=== PATIENT | female | born 1985 | race Caucasian/White ===

== ENCOUNTER → 2020-01-18 12:45 | Outpatient (BNVA) | payer MEDICAID, SELFPAY | PROVIDERS: Family Provider Family Medicine; PCP Family Medicine; Visit Provider Obstetrics & Gynecology | DX: O09.32 Supervision of pregnancy with insufficient antenatal care, second trimester (principal); Z3A.24 24 weeks gestation of pregnancy; E03.9 Hypothyroidism, unspecified; E78.2 Mixed hyperlipidemia; I10 Essential (primary) hypertension | CPT/HCPCS: 80053; 80307; 81000; 85027; 86592; 86762; 86803; 86850; 86900; 87077; 87086; 87186; 87340; 87491; 87591; 87806 ==

== ENCOUNTER 2020-01-30 11:53 | Emergency (ER) | payer MEDICAID, SELFPAY ==
[2020-01-30 12:10] VITALS: BMI 24.7
[2020-01-30 12:13] VITALS: BP 107/71; PULSE 91; RESP 20; TEMP 36.8; O2SAT 98
--- NOTE | 2020-01-30 12:42 | W.ED.EAR ---
HPI - Ear Problem General: Chief complaint: Ear Stated complaint: EAR CONGESTION Time Seen by Provider: 01/30/20 12:19 Source: patient Mode of arrival: ambulatory Limitations: no limitations History of Present Illness: HPI Narrative: Bekah is a nice 34-year-old female who comes in complaining of bilateral ear pain and drainage from her left ear. There is no reported dizziness, lightheadedness or fever. The patient states that she has been swimming this summer and feels as though she has pain sometimes in her outer ear. She denies any visual problems, vomiting, room spinning dizziness or headache. She states her ear pain though is severe at times and worse when she manipulates the outer part of her ear. She is admitted to similar symptoms in the past although she does not rub or how long ago. Associated symptoms: Denies fever(s), headache(s) or neck pain Review of Systems Const: Denies: fever(s) Eyes: Denies: change in vision ENMT: Denies: throat pain Card: Denies: chest pain, palpitations, syncope, pre-syncope or dyspnea on exertion Resp: Denies: dyspnea, productive cough or non-productive cough GI: Denies: abdominal pain, nausea, vomiting or diarrhea : Denies: flank pain, dysuria, urinary frequency or urinary urgency Musc: Denies: neck pain, back pain or extremity pain Skin/Breast: Denies: rash or pruritus Neuro: Denies: headache(s), numbness in extremities, weakness in extremities or dizziness Elijah/Lymph: Denies: easy bruising or easy bleeding All/Imm: Denies: urticaria PFSH ED PFSH: Medical History No pertinent past medical history Denies: Hypertension, hypercholesterolemia, diabetes, thyroid, heart, lung, liver, kidney problems, DVT/PE, genital herpes. Primary care provider: None Surgical History No history of previous surgery Family History Father Diabetes Hypertension Stroke Mother Stroke Breast cancer diagnosed at age 35 Sister Stroke Autism twin Denies family history of Colon cancer Heart disease Hyperlipidemia Thyroid condition Social History Smoking and tobacco status: former smoker Alcohol intake: unknown Additional social history: - Tobacco Use: Started smoking at age 23 and smoked 1/2 pack per day until 2016 when she stopped smoking. Denies tobacco use since then. Drug Use: Denies Alcohol Use: Drank socially as a teenager, denies use since then. 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 [employer] Female Reproductive History: Date of last menstrual period: 08/05/19 Physical Exam Const: COMMON NORMALS: no acute distress, patient oriented x3, no limitations, healthy appearing and well nourished GENERAL APPEARANCE: cooperative, well kempt and well developed HENMT: COMMON NORMALS: normocephalic, atraumatic, EAC's normal and Normal external nose present HEAD & SCALP: normal to inspection, normocephalic and atraumatic FACE & SINUS: normal facial exam and face symmetric NOSE: Normal external nose present and Normal nares present EXTERNAL EAR: Yes other (Bilateral ears with pain with traction on the pinna and pain with palpation of the tragus. Bilateral ear canals swollen but no obvious drainage. Mastoids were not tender to palpation. No boggy or soft end feel to the mastoid areas.) EXTERNAL AUDITORY CANAL: EAC's normal MOUTH: Normal oral and palatal mucosa present, lip normal and tongue normal Eye: COMMON NORMALS: Equal, round and reactive pupils present and conjunctivae normal GENERAL EYE: appearance normal, both eyes and all related structures ALIGNMENT: Yes alignment normal PERIORBITAL: periorbital findings normal EYELID: eyelids normal CONJUNCTIVA: Yes conjunctivae normal SCLERA: sclerae normal PUPIL: Yes Equal, round and reactive pupils present Neck/C-Spine: COMMON NORMALS: full ROM, no lymphadenopathy, supple, no meningeal signs and no JVD GENERAL: Yes normal visual inspection and Yes trachea midline Chest: COMMONS NORMALS: normal inspection of the chest and normal palpation of entire chest wall Resp: COMMON NORMALS: normal respiratory effort, No retractions and No use of accessory muscles EFFORT & INSPECTION: Yes able to speak in complete sentences and Yes symmetric chest movement AUSCULTATION: no crackles, no rales, no rhonchi and no wheezes Cardio: COMMON NORMALS: no JVD, regular rate, regular rhythm, S1 normal heart sound present and S2 normal heart sound present RATE: regular rate RHYTHM: regular rhythm HEART SOUNDS: S1 normal heart sound present, S2 normal heart sound present, no click, no gallops, no murmurs, no rubs and abnormal split S2 GI: COMMON NORMALS: Soft to palpation and No hepatosplenomegaly present PALPATION: Yes Soft to palpation, No Tenderness to palpation present (GI), No Guarding due to palpation present (GI), No Rigid due to palpation, Yes No hepatosplenomegaly present, No Hernia present, No Palpable mass present and No Pulsatile mass present : COMMON NORMALS: Yes no CVA tenderness BLADDER/KIDNEY EXAM: Yes no CVA tenderness EXTERNAL FEMALE EXAM: No Hernia present Back/Pelvis: COMMON NORMALS: no CVA tenderness, thoracic and lumbar spine normal to inspection, no thoracic nor lumbar tenderness and thoraco-lumbar ROM normal Extremity: COMMON NORMALS: normal to inspection, full ROM, capillary refill normal, no joint enlargement, no clubbing, cyanosis or edema and no calf tenderness Neuro: COMMON NORMALS: patient oriented x3, CN's II-XII intact bilaterally, moves all extremities, no focal motor deficits and no sensory deficits noted MENINGEAL SIGNS: Yes no meningeal signs SPEECH: speech normal Psych: COMMON NORMALS: mental status grossly normal, Normal thought process present, cooperative, normal affect, speech normal and activity/motor behavior normal APPEARANCE: Yes well kempt SPEECH: Yes normal speech THOUGHT PROCESS: Normal thought process present Skin: COMMON NORMALS: no rashes or lesions noted, turgor normal, no jaundice, no petechiae and no mottling GENERAL SKIN EXAM: no rashes or lesions noted and turgor normal Course Vital Signs: Vital signs: Vital Signs Temperature 98.2 F 01/30/20 12:13 Pulse Rate 91 01/30/20 12:13 Respiratory Rate 18 01/30/20 13:11 Blood Pressure 107/71 01/30/20 12:13 Pulse Oximetry 98 01/30/20 12:13 MDM - Ear MDM Narrative: Medical decision making narrative: Patient clinically has otitis externa. I will place her on Cortisporin otic eardrops. I have reviewed with the pharmacist as well as Dr. Rosenbaum who states this would be the preferred medication while she is . Patient's heart tones are normal. I will start her on a Z-Raymundo as I cannot see the eardrums and she will need her tympanic membranes covered for any type of otitis media. I see no sign of mastoiditis or deeper infection clinically and based upon exam. Discharge Plan Discharge Patient Disposition: Home Clinical Impression: Otitis externa Qualifiers: Otitis externa type: unspecified type Chronicity: acute Laterality: bilateral Qualified Code(s): H60.503 - Unspecified acute noninfective otitis externa, bilateral Condition: Stable Prescriptions: New Zithromax Z-Raymundo 250 mg tablet See Rx Instructions .ROUTE .COMPLEX Qty: 6 RF: 0 No Action prenat.vits,adrián,gww-[id number] Tablet 1 tab PO DAILY RF: 0 cephalexin 500 mg capsule 500 mg PO BID Qty: 14 RF: 0 azithromycin 500 mg tablet 1,000 mg PO DAILY Qty: 2 RF: 0 Referrals: Tressa Solares MD [Hospitalist] - Robi-Xin Payton MD [Physician] - 1-3 days Discharge Diet: Advance as tolerated Discharge Activity: Limit activity as instructed Patient Instructions: Otitis Externa - Adult, Otitis Externa (ED) Activity Restrictions/Additional Instructions: Please return to the ER immediately for any of the signs or symptoms listed on your discharge instruction sheets, worsening/changing of your symptoms, you are not getting better as quickly as expected, or for ANY other cause or concerns. Keep your ears clean and dry and use the drops as I have instructed. Be certain to call Dr. Rosenbaum's office as soon as possible for a follow-up appointment for your related issues and she can also recheck the progression of your healing from your ear infections. Discharge Date/Time: 01/30/20 13:09 Coding Level of Care Code ED Yarn Worker for Avinash Fwd Exam Comprehensive
[2020-01-30] MEDS: HYDROcodone-acetaminophen 5-325 mg Tablet 1 TAB PO (12:55)
[2020-01-30 13:11] VITALS: RESP 18
== END 2020-01-30 13:09 | disposition home or self-care (01) ==
PROVIDERS: Emergency Provider Emergency Medicine
DX: H60.503 Unspecified acute noninfective otitis externa, bilateral (principal); Z87.891 Personal history of nicotine dependence
CPT/HCPCS: 12345; 99281; 99283

== ENCOUNTER → 2020-02-02 09:35 | Outpatient (BNVA) | payer MEDICAID, SELFPAY | PROVIDERS: Visit Provider Obstetrics & Gynecology | DX: Z34.90 Encounter for supervision of normal pregnancy, unspecified, unspecified trimester (principal) | CPT/HCPCS: 81000 ==

== ENCOUNTER → 2020-02-14 10:46 | Outpatient (BNVA) | payer MEDICAID, SELFPAY | PROVIDERS: Visit Provider Obstetrics & Gynecology | DX: O40.9XX0 Polyhydramnios, unspecified trimester, not applicable or unspecified (principal); O99.89 Other specified diseases and conditions complicating pregnancy, childbirth and the puerperium; R82.71 Bacteriuria; O98.819 Other maternal infectious and parasitic diseases complicating pregnancy, unspecified trimester; A74.9 Chlamydial infection, unspecified | CPT/HCPCS: 81000; 82950; 85027 ==

== ENCOUNTER → 2020-02-28 13:28 | Outpatient (BNVA) | payer MEDICAID, SELFPAY | PROVIDERS: Visit Provider Obstetrics & Gynecology | DX: O40.9XX0 Polyhydramnios, unspecified trimester, not applicable or unspecified (principal); R82.71 Bacteriuria; O98.819 Other maternal infectious and parasitic diseases complicating pregnancy, unspecified trimester; A74.9 Chlamydial infection, unspecified; O36.5990 Maternal care for other known or suspected poor fetal growth, unspecified trimester, not applicable or unspecified | CPT/HCPCS: 81000 ==

== ENCOUNTER → 2020-03-16 10:39 | Outpatient (BNVA) | payer MEDICAID, SELFPAY | PROVIDERS: Visit Provider Obstetrics & Gynecology | DX: O99.89 Other specified diseases and conditions complicating pregnancy, childbirth and the puerperium (principal); R82.71 Bacteriuria; O98.819 Other maternal infectious and parasitic diseases complicating pregnancy, unspecified trimester; A74.9 Chlamydial infection, unspecified; Z3A.00 Weeks of gestation of pregnancy not specified | CPT/HCPCS: 80053; 81000; 87491 ==

== ENCOUNTER → 2020-03-27 09:33 | Outpatient (BNVA) | payer MEDICAID, SELFPAY | PROVIDERS: Visit Provider Obstetrics & Gynecology | DX: Z34.90 Encounter for supervision of normal pregnancy, unspecified, unspecified trimester (principal) | CPT/HCPCS: 81000 ==

== ENCOUNTER 2020-04-07 13:20 | Outpatient (CLI) | payer MEDICAID, SELFPAY ==
[2020-04-07] VITALS (34 sets, daily range): BP systolic 0–124; BP diastolic 0–88; PULSE 68–100; RESP 18; TEMP 36.8–37.1; O2SAT 88–100
[2020-04-07] MEDS: lactated ringers 1,000 ML 999 ML IV (14:05)
--- NOTE | 2020-04-07 15:37 | P.PCN_ITS ---
Procedure/Consent Procedure Narrative: NONSTRESS TEST: Place of test: [facility] [place]L&D Indication: 34-year-old 4 para 3-0-0-3 at 35 weeks and 6 days, abdominal pain and contractions Date and time of test: 04/07/2020, 1:50 PM Baseline: 120 Variability: Moderate Accelerations: Present Decelerations: None Tocometry: Every 6 to 8 minutes contractions INTERPRETATION: NST reactive, continue kick counts
--- NOTE | 2020-04-07 15:55 | PC.NURSE ---
Entered pt room at this time to update pt on new orders. Told pt that Dr. Rosenbaum ordered Terbutaline which is a medication commonly used to stop contractions. Told pt is was a shot that goes under the skin and that a common side effect is that it may make her heart rate a little faster than what it is now. Pt became very upset and reached for her phone and said, I need to to talk to my about this . This nurse agreed to allow pt to discuss with her however pt phone was . This nurse offered the room phone to the pt and dialed the number multiple times, each time getting a busy tone. Pt became more and more upset and started crying and avoiding eye contact with this nurse. This nurse asked the pt what her questions and concerns were about the medication. Pt stated, I just don't feel I should be taking medication that could make my heart rate rise. This nurse reported that her heart rate is currently in normal limits and that it could rise 10-20 beats and still be considered within normal limits. This nurse discussed that it is safe to give and that we would not give her anything that would intentionally harm her or her baby. Pt reported back. You guys are medical doctors, not God. You don't know what this medicine could do to me or my baby. This nurse told pt she had the right to refuse the medication if she would like and that she could talk to the about it if she would like. This nurse told pt she only reported the side effect of a rise in heart rate to educate the pt and that it wasn't intended to scare her. Pt reported I'm not stupid, I know what a side effect is. I really just need to talk to my about this. This nurse offered to call pt from the nurses station and pt gave consent to do so. This nurse called the number provided and pt father in law answered. This nurse asked to speak to pt and father in law reported that he was not there that he was on his way to the hospital. Father in law asked if pt was ok, this nurse reported that she did not have pt consent to give any information over the phone. Pt arrived shortly after. This nurse gave pt and her time to talk and answered all their questions about the medications and the plan of care. This nurse offered again to have physician talk to them as well, they denied and gave consent to continue with plan of care to give terbutaline. Medication was administered and this nurse stayed at bedside for around 20 minutes after administration. Pt heart rate robert by 10-15 beats, however, pt denied being able to feel a difference and reported she felt fine .
[2020-04-07] MEDS: terbutaline 1 mg/mL INJ 0.25 MG SUBCUT (16:48)
== END 2020-04-07 17:20 | disposition home or self-care (01) ==
LOC: OPOB 13:23 → OBGYN 17:18
PROVIDERS: Visit Provider Obstetrics & Gynecology
DX: O26.899 Other specified pregnancy related conditions, unspecified trimester (principal); Z3A.00 Weeks of gestation of pregnancy not specified; R10.9 Unspecified abdominal pain
CPT/HCPCS: 59025; 96372; 99211; J3105

== ENCOUNTER 2020-04-10 10:40 | Outpatient (CLI) | payer MEDICAID, SELFPAY ==
[2020-04-10 10:54] VITALS: BP 106/64; PULSE 80
[2020-04-10 10:58] VITALS: RESP 16; TEMP 36.7
[2020-04-10 10:59] VITALS: BMI 26.9
[2020-04-10 11:14] VITALS: BP 114/65; PULSE 83
--- NOTE | 2020-04-10 15:00 | PM.ACPR ---
Procedure/Consent Procedure Narrative: NONSTRESS TEST: Place of test: [facility] [place] Indication: 36 weeks and 2 days, SGA versus IUGR Date and time of test: 04/10/2020, 11 AM Baseline: 125 Variability: Moderate variability Accelerations: Accelerations present Decelerations: No decelerations Tocometry: No contractions INTERPRETATION: NST reactive, continue kick counts
== END 2020-04-10 11:25 | disposition home or self-care (01) ==
LOC: OPOB 10:49 → OBGYN 10:50
PROVIDERS: Visit Provider Obstetrics & Gynecology
DX: O36.5990 Maternal care for other known or suspected poor fetal growth, unspecified trimester, not applicable or unspecified (principal); Z3A.00 Weeks of gestation of pregnancy not specified
CPT/HCPCS: 12345; 59025; 81000; 87081; 87491; 99211

== ENCOUNTER 2020-04-14 01:03 | Outpatient (CLI) | payer MEDICAID, SELFPAY ==
[2020-04-14] VITALS (19 sets, daily range): BP systolic 0–121; BP diastolic 0–74; PULSE 72–92; RESP 16; TEMP 36.5–36.7; BMI 27.4
== END 2020-04-14 04:00 | disposition home or self-care (01) ==
LOC: OPOB 01:04 → OBGYN 03:54
PROVIDERS: Visit Provider Obstetrics & Gynecology
DX: O26.899 Other specified pregnancy related conditions, unspecified trimester (principal); Z3A.00 Weeks of gestation of pregnancy not specified; R10.9 Unspecified abdominal pain
CPT/HCPCS: 59025; 99211

== ENCOUNTER 2020-04-17 14:09 | Outpatient (CLI) | payer MEDICAID, SELFPAY ==
[2020-04-17 14:17] VITALS: RESP 16; TEMP 36.8; BMI 27.3
[2020-04-17 14:19] VITALS: BP 110/69; PULSE 102
--- NOTE | 2020-04-17 14:33 | P.PCN_ITS ---
Procedure/Consent Procedure Narrative: NONSTRESS TEST: [place] [facility] [place] Indication: 34-year-old at 37 weeks and 2 days, IUGR Date and time of test: 04/17/2020, 3 PM Baseline: 125 Variability: Moderate variability Accelerations: Present Decelerations: No decelerations Tocometry: Irritability, no contractions INTERPRETATION: NST reactive, continue kick counts
[2020-04-17 14:48] VITALS: BP 120/65; PULSE 91
[2020-04-17 14:58] VITALS: BP 97/48; PULSE 93
== END 2020-04-17 15:10 | disposition home or self-care (01) ==
LOC: OPOB 14:13 → OBGYN 14:14
PROVIDERS: Visit Provider Obstetrics & Gynecology
DX: O36.5990 Maternal care for other known or suspected poor fetal growth, unspecified trimester, not applicable or unspecified (principal); Z3A.00 Weeks of gestation of pregnancy not specified
CPT/HCPCS: 12345; 59025; 81000; 99211

== ENCOUNTER 2020-04-24 14:10 | Outpatient (CLI) | payer MEDICAID, SELFPAY ==
[2020-04-24 14:26] VITALS: BMI 27.4
[2020-04-24 14:41] VITALS: BP 109/67; PULSE 86
--- NOTE | 2020-04-24 16:00 | PM.ACPR ---
Procedure/Consent Procedure Narrative: NONSTRESS TEST: Place of test: [facility] [place] Indication: IUGR versus SGA- monitoring Date and time of test: 04/24/2020 Baseline: 120 Variability: Moderate variability Accelerations: Accelerations present Decelerations: No decelerations Tocometry: Occasional contractions INTERPRETATION: NST reactive, continue kick counts
--- NOTE | 2020-04-24 16:00 | P.PCN_ITS ---
Procedure/Consent Procedure Narrative: NONSTRESS TEST: Place of test: [facility] [place] Indication: IUGR versus SGA- monitoring Date and time of test: 04/24/2020 Baseline: 120 Variability: Moderate variability Accelerations: Accelerations present Decelerations: No decelerations Tocometry: Occasional contractions INTERPRETATION: NST reactive, continue kick counts
== END 2020-04-24 14:55 | disposition home or self-care (01) ==
LOC: OPOB 14:21 → OBGYN 14:22
PROVIDERS: Visit Provider Obstetrics & Gynecology
DX: O36.5990 Maternal care for other known or suspected poor fetal growth, unspecified trimester, not applicable or unspecified (principal); Z3A.00 Weeks of gestation of pregnancy not specified
CPT/HCPCS: 12345; 59025; 87635

== ENCOUNTER → 2020-04-26 12:59 | Outpatient (BNVA) | payer MEDICAID, SELFPAY | PROVIDERS: Visit Provider Obstetrics & Gynecology | DX: Z34.90 Encounter for supervision of normal pregnancy, unspecified, unspecified trimester (principal) | CPT/HCPCS: 81000 ==

== ENCOUNTER 2020-04-29 07:10 | Inpatient (IN) | payer MEDICAID, SELFPAY ==
[2020-04-29] VITALS (61 sets, daily range): BP systolic 0–141; BP diastolic 0–79; PULSE 63–85; RESP 14–18; TEMP 36.4–36.6; O2SAT 98–99; BMI 27.3
[2020-04-29] MEDS: oxytocin 30 UNIT/500 ML BAG IV (08:15)
[2020-04-29] MEDS: dextrose 5%-lactated ringers 1,000 ML 125 ML IV (08:19)
[2020-04-29 08:44] LABS: Basophils % 0.5 %; Eosinophils # 0.1 10^3/uL (0.0-0.8); Eosinophils % 1.3 %; Hematocrit 34.9 % (37.0-47.0); Hemoglobin 11.6 g/dL (11.5-15.3); Lymphocytes # 1.5 10^3/uL (0.8-4.8); Lymphocytes % 17.9 %; Mean Corpuscular HGB Conc 33.2 g/dL (30.0-36.0); Mean Corpuscular Hemoglobin 33.8 pg (28.0-34.0); Mean Corpuscular Volume 101.7 fL (81-99); Mean Platelet Volume 11.1 fL (7.4-10.4); Monocytes # 0.6 10^3/uL (0.2-0.9); Monocytes % 7.1 %; Neutrophils # 6.26 10^3/uL (1.8-7.7); Neutrophils % 72.7 %; Nucleated Red Blood Cells % 0 %; Platelet Count 180 10^3/cmm (130-400); Red Blood Count 3.43 10^6/uL (4.1-5.3); Red Cell Distribution Width 12.7 % (12.1-15.1); White Blood Count 8.6 10^3/uL (4.0-10.0)
--- NOTE | 2020-04-29 12:34 | PC.NURSE ---
This nurse asked pt if she had custody of her two older children. Pt hesitated to answer and stated, They do not live with me. This nurse told pt that she read a note from a previous hospital stay that stated that she did not have custody of her two boys and that they live with her mother in [place]. This nurse asked pt if that was correct. Pt became tearful and stated, My mother took them from me. She called [employer] on me and said I was unfit. She then stole all of my IDs and made it where I wasn't able to get a job or help. I moved down here to start over. I am saving up money to hire a bell hole digger and get my boys back. This nurse asked pt if [employer] was ever notified when her last two babies were born. Pt stated, Yes, they come and inspect my house and make sure everything is safe. This nurse reported that because the pt does not have custody of her two boys that this nurse is mandated to call [employer]. Pt verbalized understanding and stated, I know, I know, I've been through this before, you're just doing your job.
--- NOTE | 2020-04-29 13:16 | PM.PN ---
Vitals/I&O/Wt Last Vital Signs Temp 97.9 F 04/29/20 07:40 Pulse 66 04/29/20 13:11 Resp 18 04/29/20 07:40 BP 107/68 04/29/20 13:11 04/28/20 04/29/20 04/29/20 22:59 06:59 14:59 Intake Total 7.95 / 7.95 Balance 7.95 / 7.95 Weight last 48 hrs Weight 69.853 kg Physical Exam Narrative: EXAM NARRATIVE: GA: Alert and oriented ?3. Lungs: Clear to auscultation bilaterally. Heart: [Regular] rhythm and rate. Abdomen: Gravid, fundal height less than dates, nontender. CATALYTIC CASE OPERATOR: SVE; dilation: 5 cm, effacement: 80 %, station: -4, presentation: Cephalic, membranes: Intact. Extremities: no edema, no cyanosis, no calves pain. heart tracing: Basal rate: 140s bpm, Variability: Moderate, Accelerations: Present, Decelerations: Absent, Contractions: Every 3 minutes. Data : 04/30/20 04:05 A&P Assessment and plan (1) IUGR (intrauterine growth restriction) affecting care of mother: Patient started with oxytocin induction. Progressing adequately. heart tracing category 1. Anticipate vaginal delivery. Status: Acute Attestations Medical Necessity Statement*: in my professional opinion per admitting diagnosis Coding Level of Care Code Acute Regional Director Of Admissions for [facility] Fwd Diagnoses IUGR (intrauterine growth restriction) affecting care of mother O36.5990
--- NOTE | 2020-04-29 16:18 | PM.DELIVERY ---
Delivery Note: Date of delivery: April 29, 2020 Pre-delivery diagnoses: term at 39 weeks. intrauterine growth restriction Post-delivery diagnoses: same Procedure: spontaneous vaginal delivery Op report anesthesia: None Delivering Physician: Nathan Edgar M.D. Estimated blood loss (mL): 300 Findings: Male at 39 weeks, 's 8/9. bisrth weight 3170g. Pre-Delivery Course: The patient is a 34 year old, 5, Para 4-0-0-4, with an LMP of 07/31/2019 and an EDC of 05/06/2020 by dates which places her at 39 0/7 weeks gestation. who has been receiving care from [facility]. Admitted for induction due to IUGR CC: Induction. HPI: Received appropriate care. Daily vitamins since start of care. labs have all been normal, including negative for HIV. She had been diagnosed with intrauterine growth restriction. She was found to negative for Group B Strep from screening at 36 weeks. She has gained approximately 18 lbs throughout the . She denies a history of HTN during . Glucose tolerance screening for gestational diabetes was negative. Delivery: The patient was noted to be complete and pushing, so was placed in the dorsal lithotomy position, prepped and draped in the usual sterile fashion for a vaginal delivery. Pt. Noted to have epidural anesthesia. At 1607 the patient delivered a viable 39 weeks male infant weighing 3170 g with scores of 8 and 9 at one and five minutes, respectively. The vertex was delivered spontaneously over intact perineum. The patient was asked to push and the head delivered spontaneously in the LEANDRO position, over an intact perineum. Neck checked for a nuchal cord was and none noted. The anterior shoulder delivered easily and the posterior shoulder followed. The remainder of the infant was easily delivered and the oropharynx and nasopharynx was bulb suctioned. The was noted to have spontaneous cry and spontaneous movement of all four extremities. The cord was clamped x 2 and cut and noted to have 2 arteries and one vein. The infant was passed to the mother's abdomen where nursing personnel were in attendance. Cord blood was then obtained. The placenta delivered intact spontaneously and the uterus was explored. 20 units of Pitocin was placed in the IV bag to firm the uterus. Examination of the cervix and vaginal vault did not reveal any lacerations. A vaginal pack was then placed. Examination of the perineum showed no lacerations. The vaginal pack was then removed. The patient tolerated this procedure well, and recovered in L&D with her to the OB barreto. All sponge and needle counts were correct. Post-Delivery Status: good and stable A&P Assessment and plan (1) Term delivered: Status: Acute Coding Level of Care Code Acute Crystal Lapper for [facility] Fwd Diagnoses Term delivered O80
[2020-04-29] MEDS: docusate sodium 100 mg Capsule PO ×2 (17:32→20:49)
[2020-04-29] MEDS: lanolin oint 7 gm 1 APPLIC TOPICAL (17:32)
[2020-04-29] MEDS: benzocaine-menthol 78 gm Canister 1 SPRAY TOPICAL (17:32)
[2020-04-29] MEDS: ibuprofen 800 mg tablet PO (20:49)
[2020-04-29] MEDS: HYDROcodone-acetaminophen 5-325 mg Tablet PO (23:00)
[2020-04-30 00:09] VITALS: BP 104/65; PULSE 77; RESP 16; TEMP 36.6; O2SAT 98
[2020-04-30 02:19] VITALS: BP 106/67; PULSE 82; RESP 14; O2SAT 100
[2020-04-30 04:21] LABS: Positive C 1
[2020-04-30 04:23] LABS: Hematocrit 30.3 % (37.0-47.0); Hemoglobin 10.3 g/dL (11.5-15.3); Mean Corpuscular Hemoglobin 33.9 pg (28.0-34.0); Mean Corpuscular Volume 99.7 fL (81-99); Mean Platelet Volume 11.1 fL (7.4-10.4); Platelet Count 131 10^3/cmm (130-400); Red Blood Count 3.04 10^6/uL (4.1-5.3); Red Cell Distribution Width 12.5 % (12.1-15.1)
[2020-04-30 06:20] VITALS: BP 115/74; PULSE 68; RESP 16; TEMP 36.8; O2SAT 98
[2020-04-30] MEDS: prenatal vitamin Capsule 1 CAP PO (08:09)
[2020-04-30] MEDS: ibuprofen 800 mg tablet PO ×2 (08:09→17:17)
[2020-04-30] MEDS: HYDROcodone-acetaminophen 5-325 mg Tablet PO ×2 (08:54→17:18)
[2020-04-30 10:13] VITALS: BP 114/68; PULSE 78; RESP 16; TEMP 36.6; O2SAT 98
--- NOTE | 2020-04-30 10:34 | P.DS_ITS ---
Discharge Providers RESEARCH PROGRAM MANAGER Date of Admission: 04/29/20 07:10 Date of Discharge: 04/30/20 Attending Provider at Admission: Nathan Edgar MD Attending Provider at Discharge: Nathan Edgar MD Diagnoses at Discharge Discharge Diagnosis (1) IUGR (intrauterine growth restriction) affecting care of mother: Status: Acute Problem details: status post spontaneous vaginal delivery day 1 Qualifiers: Fetus number: single or unspecified fetus Trimester: third trimester Qualified Code(s): O36.5930 - Maternal care for other known or suspected poor growth, third trimester, not applicable or unspecified (2) Term delivered: Status: Acute Reason for Visit Reason for Visit: Induction Of Labor Hospital Course Hospital Course: The patient is a 34 year old, 5, Para 4-0-0-4, with an LMP of 07/31/2019 and an EDC of 05/06/2020 by dates which places her at 39 0/7 weeks gestation. who has been receiving care from [facility]. Admitted for induction due to IUGR CC: Induction. HPI: Received appropriate care. Daily vitamins since start of care. labs have all been normal, including negative for HIV. She had been diagnosed with intrauterine growth restriction. She was found to negative for Group B Strep from screening at 36 weeks. She has gained approximately 18 lbs throughout the . She denies a history of HTN during . Glucose tolerance screening for gestational diabetes was negative. She progressed to have a spontaneous vaginal delivery without complications. She delivered a viable 39 weeks male infant weighing 3170 g with scores of 8 and 9 at one and five minutes, respectively. laceration has been uneventful. esophago-afebrile hemodynamically stable. Tolerating diet well. Ambulating without difficulty. Information Peripartum Data: Delivery Method: Vaginal Physical Exam Narrative: EXAM NARRATIVE: GA; alert and oriented x 3 HEENT: normal Breasts: engorged Nipples - skin intact Lungs; clear to auscultation Heart: regular rhythm, no murmurs. Abd: Appropriately tender. BS+. Uterine fundus below umbilicus. No Fundal Tenderness. Perineum: normal lochia. Extremities: no edema, no cyanosis, no tenderness. Discharge Data Data Completed and Pending: Labs from last 24 hours 04/30/20 04:05 WBC 11.0 H RBC 3.04 L Hgb 10.3 L Hct 30.3 L MCV 99.7 H MCH 33.9 MCHC 34.0 RDW 12.5 Plt Count 131 MPV 11.1 H Vitals: Last Vital Signs Temp 97.9 F 04/30/20 10:13 Pulse 78 04/30/20 10:13 Resp 16 04/30/20 10:13 BP 114/68 04/30/20 10:13 Pulse Ox 98 04/30/20 10:13 Discharge Plan Discharge Patient Disposition: Home Condition: Stable Prescriptions: New ferrous sulfate 325 mg (65 mg iron) tablet 325 mg PO BID Qty: 60 RF: 0 ibuprofen 800 mg tablet 800 mg PO TID PRN (Reason: pain) Qty: 60 RF: 0 acetaminophen 325 mg capsule 325 mg PO Q4H PRN (Reason: fever or pain) Qty: 60 RF: 0 Continued prenat.vits,adrián,njh-bdzr-kywye Tablet 1 tab PO DAILY RF: 0 Discharge Orders: Discharge Order (Routine); Ordered 04/30/20 Ordered By: Nathan Edgar Referrals: Nathan Edgar MD [Physician] - 6 Weeks Discharge Diet: As Directed and Regular Discharge Activity: Increase activity as tolerated Patient Instructions: Vaginal Delivery (DC), Vaginal Delivery (GEN) Activity Restrictions/Additional Instructions: 1. Please call [facility] on next working day to make your post- appointment in 6 weeks. 2. Please stay home until you come back to the clinic on first post-operative check up. 3. Please follow instructions on your medications CAREFULLY. 4. If you have abdominal incision, do not cover it unless dressing is necessary because of drainage. OK to shower, but avoid bath. Leave steri-strips until they fall off. If they are still on one week after surgery, you may remove them. 5. If you had vaginal surgery/repairs, your doctor may instuct you to take SITZ bath. 6. Yellow, blood tinged odorous vaginal discharge is usually normal after hysterectomy or vaginal surgeries/sutures/repairs. 7. No sexual intercourse, tampons, or douches until you are completely released from the post-operative care. 8. Avoid constipation by eating right and maybe using some Metamucil or Milk of Magnesia. 9. All presciption refills are given during the working hours. Please do no wait till it runs out. Call the clinic at [phone] before your medication runs out. The clinic will get in touch with your doctor to prescribe medications if necessary. 10. Please remain within 40 mile radius from our hospital because emergencies do happen now and then during the post-operative period. 11. If you have stairs at home, take one step at a time slowly and minimize the number of trips. It helps to stay in one floor for the next few days. No lifting except what you can lift by one hand until you are released from the post-operative care. 12. Driving is discouraged until you are well healed. It may be 3-4 weeks before you feel strong enough to drive. You should be able to turn and look throught the rear window without pain and you should be able to push the brake pedal very hard without pain before you drive. No fast rules, but SAFETY should be your primary concern. DO NOT drive if you are on sedating medications such as narcotics. 13. Call the clinic (during working hours) to make urgent appointment or go to the Emergency room, if any of the following occurs: i. Vaginal bleeding becomes heavy, more than a period. ii. Incision becomes red and sore, or drains pus. iii. Your temperature is over 100.4 or you have chill. iv. IV site becomes red and swollen (a little ``knot?? is usually OK) v. Persistent nausea and vomiting vi. Persistent constipation or diarrhea vii. Rash or allergic reaction to medications. Discharge Attestations RESEARCH PROGRAM MANAGER Time Spent in Discharge Care*: greater than 30 min Specific Discharge Activities: Specific discharge activities: educating patient and educating and/or supporting family/caregiver Coding Level of Care Code Acute [employer] Agent for Chg Fwd Diagnoses IUGR (intrauterine growth restriction) affecting care of mother O36.5930 Fetus number: single or unspecified fetus Trimester: third trimester Term delivered O80
[2020-04-30 17:40] VITALS: BP 119/79; PULSE 79; RESP 16; TEMP 36.6; O2SAT 98
== END 2020-04-30 17:45 | disposition home or self-care (01) | DRG 807 ==
PROVIDERS: Admitting Provider Obstetrics & Gynecology; Visit Provider Obstetrics & Gynecology
DX: O36.5930 Maternal care for other known or suspected poor fetal growth, third trimester, not applicable or unspecified (principal); Z37.0 Single live birth; Z3A.39 39 weeks gestation of pregnancy
CPT/HCPCS: 12345; 36415; 59025; 59409; 85025; 85027; 90471; 90686; 99211

== ENCOUNTER → 2021-01-29 12:23 | Outpatient (BNVA) | payer OTHER, SELFPAY | PROVIDERS: PCP Family Medicine; Visit Provider Nurse Practitioner Family | DX: Z20.822 Contact with and (suspected) exposure to COVID-19 (principal) | CPT/HCPCS: 87635 ==

== ENCOUNTER 2021-05-02 07:50 | Emergency (ER) | payer BC, MEDICAID, SELFPAY ==
[2021-05-02 07:54] VITALS: BP 121/78; PULSE 89; RESP 18; TEMP 36.4; O2SAT 99; BMI 21.9
--- NOTE | 2021-05-02 08:08 | ED_ITS ---
HPI - Female Genitourinary General: Chief complaint: Urogenital-Female Stated complaint: L FLANK PAIN, H/A Time Seen by Provider: 05/02/21 07:52 History of Present Illness: HPI Narrative: Patient is a 35-year-old female comes to the ED with left flank pain. Symptoms started last night. She has pain in her left flank and lower back region that she rates it a 10 out of 10. She also endorses having some nausea but has not had any episodes of emesis. Denies having any pain like this in the past. No worsening or improving factors. She has not taken any [id number] pain meds before coming to the ED. Patient just started her menstrual period today. Denies any fever, chills, abdominal pain, emesis dysuria or hematuria. Associated symptoms: Reports nausea; Deny abdominal pain or headache(s) Date of Last Menstrual Period: 12/17/20 Review of Systems Const: Denies: fever(s), chills or fatigue Eyes: Denies: change in vision or eye discomfort ENMT: Denies: throat pain, odynophagia, nasal discharge or nasal congestion Card: Denies: chest pain, palpitations, edema, swelling of feet/ankles, dyspnea on exertion or orthopnea Resp: Denies: dyspnea, productive cough or non-productive cough GI: Reports: nausea; Denies: abdominal pain, vomiting, diarrhea, constipation or hematochezia : Reports: flank pain; Denies: dysuria or hematuria Musc: Denies: neck pain, back pain or extremity swelling Skin/Breast: Denies: rash or new lesions Neuro: Denies: headache(s), numbness in extremities or weakness in extremities PFSH ED PFSH: Medical History No pertinent past medical history Denies: Hypertension, hypercholesterolemia, diabetes, thyroid, heart, lung, liver, kidney problems, DVT/PE, genital herpes. Primary care provider: None Psychiatric care Surgical History No history of previous surgery Family History Father Diabetes Hypertension Stroke Mother Stroke Breast cancer diagnosed at age 35 Sister Stroke Autism twin Denies family history of Colon cancer Heart disease Hyperlipidemia Thyroid condition Social History Smoking and tobacco status: former smoker Quit status (tobacco): has quit using tobacco Year quit tobacco: Quit age 23. Former quit date comment: Most smoked 1/2 PPD. Alcohol intake: former Other details last alcohol use: Drinks socially as a teenager Female Reproductive History: Date of last menstrual period: 12/17/20 Physical Exam Const: COMMON NORMALS: no acute distress, patient oriented x3 and alert GENERAL APPEARANCE: cooperative and comfortable HENMT: COMMON NORMALS: normocephalic HEAD & SCALP: normocephalic MOUTH: Normal oral and palatal mucosa present THROAT: posterior oropharynx normal and uvula midline Eye: COMMON NORMALS: Equal, round and reactive pupils present PUPIL: Yes Equal, round and reactive pupils present Neck/C-Spine: COMMON NORMALS: supple GENERAL: Yes normal visual inspection Resp: COMMON NORMALS: normal respiratory effort, No retractions, No use of accessory muscles and clear to auscultation bilaterally AUSCULTATION: clear to auscultation bilaterally Cardio: COMMON NORMALS: regular rate, regular rhythm, S1 normal heart sound present, S2 normal heart sound present, No gallops present (Cardio), No clicks present (Cardio), No murmurs present (Cardio) and Peripheral pulses 2+ throughout RATE: regular rate RHYTHM: regular rhythm HEART SOUNDS: S1 normal heart sound present and S2 normal heart sound present PERIPHERAL PULSES: Peripheral pulses 2+ throughout GI: COMMON NORMALS: Normal to inspection, nondistended, normoactive bowel sounds present, Soft to palpation, non-tender and no masses PALPATION: Yes Soft to palpation : BLADDER/KIDNEY EXAM: Yes CVA tenderness on the left Back/Pelvis: GENERAL BACK: Yes CVA tenderness Extremity: COMMON NORMALS: normal to inspection Neuro: COMMON NORMALS: patient oriented x3 and moves all extremities SENSORIUM/ORIENTATION: Yes alert Skin: GENERAL SKIN EXAM: dry skin Course Vital Signs: Vital signs: Vital Signs Temperature 97.6 F 05/02/21 07:54 Pulse Rate 89 05/02/21 07:54 Respiratory Rate 18 05/02/21 07:54 Blood Pressure 121/78 05/02/21 07:54 Pulse Oximetry 99 05/02/21 07:54 MDM - Female MDM Narrative: Medical decision making narrative: Patient is a 35-year-old female comes to the ED with acute left flank pain. She also endorses having some nausea but denies any other symptoms. She has left CVA tenderness but the rest of exam is benign. Patient had no abdominal tenderness upon palpation. Labs show neutropenia, but the rest of the labs are unremarkable. Blood cultures pending. Patient is afebrile and the rest of vitals are stable. CT of abdomen pelvis showed no signs of appendicitis or obstructive kidney stones. Patient was diagnosed with left flank pain and neutropenia. She was given a dose of Cipro and clindamycin while here in the ED. Patient was also given IV fluids, nausea and pain meds while here in the ED. She was discharged home and told to follow-up with her PCP within 3 days to be reevaluated and to have her CBC lab rechecked. She was discharged home with a prescription for Cipro, clindamycin, Zofran and hydrocodone. Return to ED precautions given. Patient understood and agreed with plan. Lab Data: Attestation: I reviewed the patient's lab results. Labs: Lab Results 05/02/21 05/02/21 05/02/21 08:15 08:15 08:15 WBC 2.4 10^3/uL L 10^ 3/uL (4.0-10.0) RBC 4.76 10^6/uL 10^6 /uL (4.1-5.3) Hgb 15.1 g/dL g/dL (11.5-15.3) Hct 44.9 % % (37.0-47.0) MCV 94.3 fl fl (81-99) MCH 31.7 pg pg (28.0-34.0) MCHC 33.6 g/dL g/dL (30.0-36.0) RDW 12.5 % % (12.1-15.1) Plt Count 143 10^3/cmm 10^3 /cmm (130-400) MPV 11.3 fL H fL (7.4-10.4) Neut % (Auto) 35.5 % % Lymph % (Auto) 47.3 % % Wilkinson % (Auto) 16.0 % % Eos % (Auto) 0.8 % % Baso % (Auto) 0.4 % % Neut # (Auto) 0.84 10^3/uL L* 1 0^3/uL (1.8-7.7) Lymph # (Auto) 1.1 10^3/uL 10^3/ uL (0.8-4.8) Wilkinson # (Auto) 0.4 10^3/uL 10^3/ uL (0.2-0.9) Eos # (Auto) 0.0 10^3/uL 10^3/ uL (0.0-0.8) Baso # (Auto) 0.0 10^3/uL 10^3/ uL (0.0-0.1) Nucleated RBC % (a uto) 0 % % Nucleated RBCs # 0.0 /100WBC /100W BC Sodium 136 mmol/L mmol/L (136-145) Potassium 3.6 mmol/L mmol/L (3.5-5.1) Chloride 100 mmol/L mmol/L (98-107) Carbon Dioxide 25 mmol/L mmol/L (22-29) Anion Gap 14.6 (5-19) BUN 12 mg/dL mg/dL (6-20) Creatinine 0.7 mg/dL mg/dL (0.5-0.9) GFR Calculation 95.8 mL/min mL/mi n (90-130) Glucose 83 mg/dL mg/dL (65-115) Calculated Osmolal ity 281 mOsm/kg L mOs m/kg (285-295) Calcium 9.3 mg/dL mg/dL (8.5-10.5) Total Bilirubin 0.3 mg/dL mg/dL (0.15-1.2) AST 24 U/L U/L (0-32) ALT 17 U/L U/L (0-33) Alkaline Phosphata se 97 IU/L IU/L (35-105) Total Protein 7.9 g/dL g/dL (6.6-8.7) Albumin 4.7 g/dL g/dL (3.5-5.2) Globulin 3.2 g/dL g/dL (1.3-4.6) Lipase 26 U/L U/L (13-60) HCG, Qual Negative (Negative) Urine Color Urine Appearance Urine pH Ur Specific Gravit y Urine Protein Urine Glucose (UA) Urine Ketones Urine Blood Urine Nitrate Urine Bilirubin Urine Urobilinogen Ur Leukocyte Karo ase Urine RBC Urine WBC Ur Squamous Epith Cells Amorphous Sediment Urine Bacteria 10/27/21 08:38 WBC RBC Hgb Hct MCV MCH MCHC RDW Plt Count MPV Neut % (Auto) Lymph % (Auto) Wilkinson % (Auto) Eos % (Auto) Baso % (Auto) Neut # (Auto) Lymph # (Auto) Wilkinson # (Auto) Eos # (Auto) Baso # (Auto) Nucleated RBC % (a uto) Nucleated RBCs # Sodium Potassium Chloride Carbon Dioxide Anion Gap BUN Creatinine GFR Calculation Glucose Calculated Osmolal ity Calcium Total Bilirubin AST ALT Alkaline Phosphata se Total Protein Albumin Globulin Lipase HCG, Qual Urine Color Yellow (Yellow) Urine Appearance Clear (CLEAR) Urine pH 6.5 (5-7) Ur Specific Gravit y 1.010 (1.005-1.030) Urine Protein Neg (Negative) Urine Glucose (UA) Norm (Normal) Urine Ketones Negative (Negative) Urine Blood 2+ H (Negative) Urine Nitrate Negative (Negative) Urine Bilirubin Neg (Negative) Urine Urobilinogen Norm mg/dL mg/dL (Negative) Ur Leukocyte Karo ase Negative (Negative) Urine RBC None /hpf /hpf (0-2) Urine WBC 0-4 /hpf H /hpf (0-5) Ur Squamous Epith Cells 0-4 /hpf H /hpf (0-5) Amorphous Sediment Not Reportable Urine Bacteria Trace /hpf /hpf (NONE) Imaging Data: CT Abd/Pel: Attestation: I personally reviewed and interpreted this imaging study as follows: Radiologist's impression: [address] [address] [address] Scan Report Signed Patient: Bekah Villarreal Unit #: [id number] : 1985 Age/Sex: 35 / F ADM Date: 05/02/21 Loc: ER Room/Bed: Attending Dr: Ordering Provider/Ordering MD: Mckay Hodges Date of Service: 05/02/21 Procedure(s): CT kidney stone 30473 Accession Number(s): [id number] Report Number: [id number] WS: [id number] CT ABDOMEN AND PELVIS NONCONTRAST HISTORY: left flank pain and nausea TECHNIQUE: Imaging performed through the abdomen and pelvis. Coronal and sagittal reformats are submitted. All CT scans at [facility] use at least one of these dose optimization techniques: automated exposure control; mA and/or kV adjustment per patient size (includes targeted exams where dose is matched to clinical indication); or iterative reconstruction. DLP: 547.03 mGy.cm COMPARISON: None available. Lower thorax: Lung bases are clear. Visualized heart is normal. No hiatal hernia. Liver: Normal size liver with a few granulomata. No mass. Gallbladder: Normal gallbladder. Pancreas: Poorly visualized without IV contrast. Spleen: Normal. Adrenal glands: Normal. No mass. Right kidney: Normal size kidney with no mass or hydronephrosis. Left kidney: Normal size kidney with no mass or hydronephrosis. Aorta: Normal abdominal aorta, no aneurysm or atherosclerosis. No free fluid, intraperitoneal air or significant lymphadenopathy. GI tract: Diffuse constipation and fecal retention. The appendix is identified and not dilated and no additional inflammation. There are extensive calcifications throughout the appendix. Abdominal wall: Negative. No hernia. Pelvis: Normal anteverted uterus. Uterus is slightly positioned to the RIGHT of midline. Small follicle LEFT ovary. Osseous structures: Unremarkable. CT/CT kidney stone [id number] IMPRESSION: 1. No renal obstruction or calcifications identified. 2. No appendicitis. The appendix is identified and does contain extensive appendicoliths. 3. Diffuse constipation. Dictated By: Milagro Vargas DO Signed By: Milagro Vargas DO Signed Date/Time: 05/02/21915 DD/ 0 Discharge Plan Discharge Patient Disposition: Home Clinical Impression: Acute left flank pain Neutropenia Qualifiers: Neutropenia type: unspecified Qualified Code(s): D70.9 - Neutropenia, unspecified Condition: Stable Prescriptions: New ciprofloxacin HCl 500 mg tablet 500 mg PO BID 7 Days Qty: 14 RF: 0 clindamycin HCl 150 mg capsule 300 mg PO QID 7 Days Qty: 56 RF: 0 Zofran 4 mg tablet 4 mg PO Q8H PRN (Reason: nausea and vomiting) Qty: 20 RF: 0 No Action doxycycline hyclate 100 mg capsule 100 mg PO BID RF: 0 Discharge Orders: Discharge ED (Routine); Ordered 05/02/21 Ordered By: Mckay Hodges Referrals: Drerell Lechuga MD [Primary Care Provider] - Discharge Diet: Regular Discharge Activity: Increase activity as tolerated Patient Instructions: Neutropenia (ED), Flank Pain (ED), Opioid Safety Activity Restrictions/Additional Instructions: Follow-up with medical provider as directed within the next 3 days to be reevaluated. Have your PCP redraw CBC lab to check on white blood cell counts. Take medications as prescribed. Return to the ER or your medical provider if condition worsens. Please read and understand discharge instructions. Thank you for choosing [facility] for your healthcare needs today. Please realize this is an emergency room and that we are providing you with a medical screening exam and this may not be complete and all inclusive of all the testing and or work up that you may need to determine your ailment or severity of your illness. It is very important that you follow up as instructed or that you return to the Emergency Department should you have concerns or if your condition changes or worsens in any way. Stand Alone Forms: Work/School Release Coding Level of Care Code ED Care Program Resident for Avinash [employer] Exam Comprehensive
--- NOTE | 2021-05-02 08:13 | CT_ITS ---
WS: [id number] CT ABDOMEN AND PELVIS NONCONTRAST HISTORY: left flank pain and nausea TECHNIQUE: Imaging performed through the abdomen and pelvis. Coronal and sagittal reformats are submi tted. All CT scans at [facility] use at least one of these dose optimization techniques: auto mated exposure control; mA and/or kV adjustment per patient size (includes targeted exams where dose is matched to clinical indication); or iterative reconstruction. DLP: 547.03 mGy.cm COMPARISON: None available. Lower thorax: Lung bases are clear. Visualized heart is normal. No hiatal hernia. Liver: Normal size liver with a few granulomata. No mass. Gallbladder: Normal gallbladder. Pancreas: Poorly visualized without IV contrast. Spleen: Normal. Adrenal glands: Normal. No mass. Right kidney: Normal size kidney with no mass or hydronephrosis. Left kidney: Normal size kidney with no mass or hydronephrosis. Aorta: Normal abdominal aorta, no aneurysm or atherosclerosis. No free fluid, intraperitoneal air or significant lymphadenopathy. GI tract: Diffuse constipation and fecal retention. The appendix is identified and not dilated and no additional inflammation. There are extensive calcifications throughout the appendix. Abdominal wall: Negative. No hernia. Pelvis: Normal anteverted uterus. Uterus is slightly positioned to the RIGHT of midline. Small follic le LEFT ovary. Osseous structures: Unremarkable. CT/CT kidney stone [id number] IMPRESSION: 1. No renal obstruction or calcifications identified. 2. No appendicitis. The appendix is identified and does contain extensive appe ndicoliths. 3. Diffuse constipation.
[2021-05-02 08:21] LABS: Basophils % 0.4 %; Eosinophils % 0.8 %; Hematocrit 44.9 % (37.0-47.0); Hemoglobin 15.1 g/dL (11.5-15.3); Lymphocytes # 1.1 10^3/uL (0.8-4.8); Lymphocytes % 47.3 %; Mean Corpuscular HGB Conc 33.6 g/dL (30.0-36.0); Mean Corpuscular Hemoglobin 31.7 pg (28.0-34.0); Mean Corpuscular Volume 94.3 fl (81-99); Mean Platelet Volume 11.3 fL (7.4-10.4); Monocytes # 0.4 10^3/uL (0.2-0.9); Neutrophils % 35.5 %; Nucleated Red Blood Cells % 0 %; Platelet Count 143 10^3/cmm (130-400); Red Blood Count 4.76 10^6/uL (4.1-5.3); Red Cell Distribution Width 12.5 % (12.1-15.1); White Blood Count 2.4 10^3/uL (4.0-10.0)
[2021-05-02 08:39] LABS: Neutrophils # 0.84 10^3/uL (1.8-7.7)
[2021-05-02] MEDS: morphine 4 mg/mL SDV 1 mL IVP (08:42)
[2021-05-02] MEDS: ondansetron 2 mg/ML SDV 2 mL 4 MG IVP (08:42)
[2021-05-02] MEDS: sodium chloride 0.9% 1,000 ML 999 ML IV (08:43)
[2021-05-02 08:51] LABS: Alanine Aminotransferase 17 U/L (0-33); Albumin Level 4.7 g/dL (3.5-5.2); Alkaline Phosphatase 97 IU/L (35-105); Anion Gap 14.6 (5-19); Aspartate Amino Transferase 24 U/L (0-32); Blood Urea Nitrogen 12 mg/dL (6-20); Calcium 9.3 mg/dL (8.5-10.5); Carbon Dioxide 25 mmol/L (22-29); Chloride 100 mmol/L (98-107); Globulin 3.2 g/dL (1.3-4.6); Glomerular Filtration Rate 95.8 mL/min (90-130); Glucose 83 mg/dL (65-115); Lipase 26 U/L (13-60); Osmolality Calculated 281 mOsm/kg (285-295); Potassium 3.6 mmol/L (3.5-5.1); Sodium 136 mmol/L (136-145); Total Bilirubin 0.3 mg/dL (0.15-1.2); Total Protein 7.9 g/dL (6.6-8.7)
[2021-05-02 08:59] LABS: HCG, Serum Qual Negative (Negative)
[2021-05-02 09:56] LABS: Urine Appearance Clear (CLEAR); Urine Color Yellow (Yellow); pH Urine 6.5 (5-7)
[2021-05-02 09:57] LABS: Add Urine Microscopic? YES; Bilirubin Urine Neg (Negative); Blood Urine 2+ (Negative); Glucose Urine UA Norm (Normal); Ketones Urine Negative (Negative); Leukocyte Esterase Urine Negative (Negative); Nitrate Urine Negative (Negative); Protein Urine Neg (Negative); Urobilinogen Urine Norm (Negative)
[2021-05-02 10:05] LABS: Bacteria Urine TRACE /hpf; Squamous Epithelial Cell Urine 0-4 /hpf (0-5); WBC Urine 0-4 /hpf (0-5)
[2021-05-02] MEDS: ketorolac 30 mg/mL INJ IVP (10:10)
[2021-05-02] MEDS: ciprofloxacin 500 mg Tablet PO (10:34)
[2021-05-02] MEDS: clindamycin 150 mg Capsule 300 MG PO (10:34)
== END 2021-05-02 10:54 | disposition home or self-care (01) ==
PROVIDERS: Emergency Provider Physician Assistant; PCP Family Medicine
DX: D70.9 Neutropenia, unspecified (principal); R10.9 Unspecified abdominal pain; Z87.891 Personal history of nicotine dependence
CPT/HCPCS: 74176; 80053; 81001; 83690; 84703; 85025; 87040; 96361; 96374; 96375; 99283; J1885; J2270; J2405; J7030

== ENCOUNTER 2021-05-05 10:40 | Emergency (ER) | payer BC, MEDICAID, SELFPAY ==
[2021-05-05 10:55] VITALS: BP 105/74; PULSE 101; RESP 22; TEMP 36.8; O2SAT 97; BMI 21.9
--- NOTE | 2021-05-05 11:08 | CTR_ITS ---
PROCEDURE INFORMATION: Exam: CT Head Without Contrast Exam date and time: 05/05/2021 11:08 AM Age: 35 years old Clinical indication: Malaise or fatigue and weakness, extremity; Bilateral; Additional info: Numbness in face and arms bilaterally TECHNIQUE: Imaging protocol: Computed tomography of the head without contrast. Radiation optimization: All CT scans at this facility use at least one of these dose optimization techniques: automated exposure control; mA and/or kV adjustment per patient size (includes targeted exams where dose is matched to clinical indication); or iterative reconstruction. COMPARISON: No relevant prior studies available. RADIATION DOSE METRICS: Total DLP (mGy-cm): 675.74 FINDINGS: Brain: Normal. No hemorrhage. Unremarkable white matter. No mass effect. Cerebral ventricles: No ventriculomegaly. Paranasal sinuses: There is scattered mucosal thickening in the ethmoid maxillary and sphenoid sinuses. There is a small amount of fluid in the sphenoid sinus. Mastoid air cells: Visualized mastoid air cells are well aerated. Bones/joints: Unremarkable. No acute fracture. Soft tissues: Unremarkable. CT/CT head wo con* [id number] IMPRESSION: 1. No acute intracranial abnormality. 2. Paranasal sinusitis. Radiation Dose CTDIVOL = (mGy): DLP = 675.74 (mGy-cm)
--- NOTE | 2021-05-05 11:16 | ED_ITS ---
HPI - Back Pain/Injury General: Chief Complaint: Back Pain/Injury Stated Complaint: SPREADING NUMBNESS/LOW WBC Time Seen by Provider: 05/05/21 10:43 History of Present Illness: HPI Narrative: Patient is a 35-year-old female comes to the ED with bilateral arm numbness and left side facial numbness. Symptoms occurred approximately 1 hour ago. 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 She endorses some bilateral hand and arm pain as well. Denies any vision changes or any other neurological symptoms. She endorses having some left-sided back and flank pain that remains about the same as it did when she was seen here on May 02 for flank and back pain complaint. No worsening back or flank pain since May 02. Denies any fever, chills, chest pain, shortness of breath, abdominal pain, bladder or bowel symptoms. Patient has a follow-up appointment set up with her PCP on May 09. Associated symptoms: Deny abdominal pain, chills, dysuria, fatigue, fever(s), hematuria, nausea or vomiting Review of Systems Const: Denies: fever(s), chills or fatigue Eyes: Denies: change in vision or eye discomfort ENMT: Denies: throat pain, odynophagia, nasal discharge or nasal congestion Card: Denies: chest pain, palpitations, edema, swelling of feet/ankles, dyspnea on exertion or orthopnea Resp: Denies: dyspnea, productive cough or non-productive cough GI: Denies: abdominal pain, nausea, vomiting, diarrhea, constipation or hematochezia : Denies: flank pain, dysuria or hematuria Musc: Reports: back pain and extremity pain (bilateral hand and arm pain); Denies: neck pain or extremity swelling Skin/Breast: Denies: rash or new lesions Neuro: Reports: sensory changes (numbness left side of face, bilateral hands and arms); Denies: headache(s), numbness in extremities or weakness in extremities [facility] ED PFSH: Medical History No pertinent past medical history Denies: Hypertension, hypercholesterolemia, diabetes, thyroid, heart, lung, liver, kidney problems, DVT/PE, genital herpes. Primary care provider: None Psychiatric care Surgical History No history of previous surgery Family History Father Diabetes Hypertension Stroke Mother Stroke Breast cancer diagnosed at age 35 Sister Stroke Autism twin Denies family history of Colon cancer Heart disease Hyperlipidemia Thyroid condition Social History Smoking and tobacco status: former smoker Quit status (tobacco): has quit using tobacco Year quit tobacco: Quit age 23. Former quit date comment: Most smoked 1/2 PPD. Alcohol intake: former Other details last alcohol use: Drinks socially as a teenager Female Reproductive History: Date of last menstrual period: 05/05/21 Physical Exam Const: COMMON NORMALS: no acute distress, patient oriented x3, healthy appearing and alert GENERAL APPEARANCE: cooperative and comfortable HENMT: COMMON NORMALS: normocephalic HEAD & SCALP: normocephalic MOUTH: Normal oral and palatal mucosa present THROAT: posterior oropharynx normal and uvula midline Eye: COMMON NORMALS: Equal, round and reactive pupils present, EOMs intact bilaterally and conjunctivae normal CONJUNCTIVA: Yes conjunctivae normal PUPIL: Yes Equal, round and reactive pupils present Neck/C-Spine: COMMON NORMALS: supple GENERAL: Yes normal visual inspection Resp: COMMON NORMALS: normal respiratory effort, No retractions, No use of accessory muscles and clear to auscultation bilaterally AUSCULTATION: clear to auscultation bilaterally Cardio: COMMON NORMALS: regular rate, regular rhythm, S1 normal heart sound present, S2 normal heart sound present, No gallops present (Cardio), No clicks present (Cardio), No murmurs present (Cardio) and Peripheral pulses 2+ throughout RATE: regular rate RHYTHM: regular rhythm HEART SOUNDS: S1 normal heart sound present and S2 normal heart sound present PERIPHERAL PULSES: Peripheral pulses 2+ throughout GI: COMMON NORMALS: Normal to inspection, nondistended, normoactive bowel sounds present, Soft to palpation, non-tender and no masses PALPATION: Yes S oft to palpation : COMMON NORMALS: Yes no CVA tenderness BLADDER/KIDNEY EXAM: Yes no CVA tenderness Back/Pelvis: COMMON NORMALS: no CVA tenderness Extremity: COMMON NORMALS: no pedal edema NARRATIVE EXTREMITY EXAM: Phalen's test performed bilaterally?patient had positive findings with worsening pain and numbness and tingling in both hands and arms. GENERAL: Yes normal exam except as noted Neuro: COMMON NORMALS: patient oriented x3, CN's II-XII intact bilaterally, moves all extremities, no focal motor deficits and no sensory deficits noted SENSORIUM/ORIENTATION: Yes alert SENSORY EXAM: Yes extremities (intact) MOTOR EXAM: 5/5 motor strength present throughout Skin: GENERAL SKIN EXAM: dry skin Course Reevaluation(s): Reevaluation #1: Patient's facial paresthesia resolved while here in the ED. She was still having some pain/numbness tingling in the hands. Patient has an appointment to follow-up with her PCP on May 09. Time: 12:48 Vital Signs: Vital signs: Vital Signs Temperature 98.3 F 05/05/21 10:55 Pulse Rate 63 05/05/21 13:20 Respiratory Rate 18 05/05/21 13:20 Blood Pressure 128/90 05/05/21 13:20 Pulse Oximetry 100 05/05/21 13:20 MDM - Back Pain/Injury MDM Narrative: Medical decision making narrative: Patient is a 35-year-old female comes bilateral upper extremity numbness and pain along with left-sided facial numbness. 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 Vitals stable. Exam showed a positive Phalen's test on wrist bilaterally. Neuro exam was normal showing no deficits. Head CT showed no acute findings. Labs were unremarkable. Urine drug screen showed opiates and marijua, but patient was recently discharged home with a prescription for hydrocodonena approximately 3 days ago. Patient pt-sided facial numbness/tingling resolved while here in the ED. Patient diagnosed with carpal tunnel syndrome and facial paresthesias that resolved in the ED. She was discharged home with a prescription for ibuprofen and prednisone. Return to ED precautions given. She has follow-up with her PCP on May 09. Patient understood and agree with plan. Lab Data: Attestation: I reviewed the patient's lab results. Labs: Lab Results 05/05/21 05/05/21 05/05/21 11:24 11:24 11:35 WBC 3.1 10^3/uL L 10^ 3/uL (4.0-10.0) RBC 4.82 10^6/uL 10^6 /uL (4.1-5.3) Hgb 15.2 g/dL g/dL (11.5-15.3) Hct 44.8 % % (37.0-47.0) MCV 92.9 fl fl (81-99) MCH 31.5 pg pg (28.0-34.0) MCHC 33.9 g/dL g/dL (30.0-36.0) RDW 12.4 % % (12.1-15.1) Plt Count 127 10^3/cmm L 10 ^3/cmm (130-400) MPV 12.0 fL H fL (7.4-10.4) Neut % (Auto) 35.2 % % Lymph % (Auto) 50.8 % % Hunt % (Auto) 11.7 % % Eos % (Auto) 1.0 % % Baso % (Auto) 0.3 % % Neut # (Auto) 1.09 10^3/uL L 10 ^3/uL (1.8-7.7) Lymph # (Auto) 1.6 10^3/uL 10^3/ uL (0.8-4.8) Hunt # (Auto) 0.4 10^3/uL 10^3/ uL (0.2-0.9) Eos # (Auto) 0.0 10^3/uL 10^3/ uL (0.0-0.8) Baso # (Auto) 0.0 10^3/uL 10^3/ uL (0.0-0.1) Nucleated RBC % (a uto) 0 % % Nucleated RBCs # 0.0 /100WBC /100W BC Sodium Potassium Chloride Carbon Dioxide Anion Gap BUN Creatinine GFR Calculation Glucose Calculated Osmolal ity Calcium Total Bilirubin AST ALT Alkaline Phosphata se Total Protein Albumin Globulin Lipase HCG, Qual Urine Color Yellow (Yellow) Urine Appearance Hazy A (CLEAR) Urine pH 5 (5-7) Ur Specific Gravit y 1.015 (1.005-1.030) Urine Protein Neg (Negative) Urine Glucose (UA) Norm (Normal) Urine Ketones Negative (Negative) Urine Blood 3+ H (Negative) Urine Nitrate Negative (Negative) Urine Bilirubin Neg (Negative) Urine Urobilinogen Norm mg/dL mg/dL (Negative) Ur Leukocyte Karo ase Negative (Negative) Urine RBC 25-40 /hpf H /hpf (0-2) Urine WBC Rare /hpf /hpf (0-5) Ur Squamous Epith Cells 40-55 /hpf H /hpf (0-5) Ur Transition Epit h Cell 0-4 /hpf /hpf Amorphous Sediment Not Reportable Urine Bacteria 1+ /hpf H /hpf (NONE) Urine Mucus 2+ /hpf /hpf Urine Opiates Scre en Positive ng/mL H ng/mL (Negative) Ur Barbiturates Sc reen Negative ng/mL ng /mL (Negative) Ur Phencyclidine S crn Negative ng/mL ng /mL (Negative) Ur Amphetamines Sc reen Negative ng/mL ng /mL (Negative) U Benzodiazepines Scrn Negative ng/mL ng /mL (Negative) Urine Cocaine Scre en Negative ng/mL ng /mL (Negative) U Marijuana (THC) Screen Positive ng/mL H ng/mL (Negative) 05/05/21 05/05/21 11:35 11:35 WBC RBC Hgb Hct MCV MCH MCHC RDW Plt Count MPV Neut % (Auto) Lymph % (Auto) Hunt % (Auto) Eos % (Auto) Baso % (Auto) Neut # (Auto) Lymph # (Auto) Hunt # (Auto) Eos # (Auto) Baso # (Auto) Nucleated RBC % (a uto) Nucleated RBCs # Sodium 140 mmol/L mmol/L (136-145) Potassium 3.5 mmol/L mmol/L (3.5-5.1) Chloride 104 mmol/L mmol/L (98-107) Carbon Dioxide 26 mmol/L mmol/L (22-29) Anion Gap 13.5 (5-19) BUN 14 mg/dL mg/dL (6-20) Creatinine 0.8 mg/dL mg/dL (0.5-0.9) GFR Calculation 82.1 mL/min L mL/ min (90-130) Glucose 73 mg/dL mg/dL (65-115) Calculated Osmolal ity 289 mOsm/kg mOsm/ kg (285-295) Calcium 9.4 mg/dL mg/dL (8.5-10.5) Total Bilirubin 0.4 mg/dL mg/dL (0.15-1.2) AST 48 U/L H U/L (0-32) ALT 45 U/L H U/L (0-33) Alkaline Phosphata se 80 IU/L IU/L (35-105) Total Protein 7.5 g/dL g/dL (6.6-8.7) Albumin 4.5 g/dL g/dL (3.5-5.2) Globulin 3.0 g/dL g/dL (1.3-4.6) Lipase 21 U/L U/L (13-60) HCG, Qual Negative (Negative) Urine Color Urine Appearance Urine pH Ur Specific Gravit y Urine Protein Urine Glucose (UA) Urine Ketones Urine Blood Urine Nitrate Urine Bilirubin Urine Urobilinogen Ur Leukocyte Karo ase Urine RBC Urine WBC Ur Squamous Epith Cells Ur Transition Epit h Cell Amorphous Sediment Urine Bacteria Urine Mucus Urine Opiates Scre en Ur Barbiturates Sc reen Ur Phencyclidine S crn Ur Amphetamines Sc reen U Benzodiazepines Scrn Urine Cocaine Scre en U Marijuana (THC) Screen Imaging Data^: CT Head: Attestation: I personally reviewed and interpreted this imaging study as follows: Radiologist's impression: [address] [address] [address] Scan Report Signed Patient: Bekah Villarreal Unit #: [id number] : 1985 Age/Sex: 35 / F ADM Date: 05/05/21 Loc: ER Room/Bed: Attending Dr: Ordering Provider/Ordering MD: Mckay Hodges Date of Service: 05/05/21 Procedure(s): CT head wo con* [id number] Accession Number(s): [id number] Report Number: [id number] PROCEDURE INFORMATION: Exam: CT Head Without Contrast Exam date and time: 05/05/2021 11:08 AM Age: 35 years old Clinical indication: Malaise or fatigue and weakness, extremity; Bilateral; Additional info: Numbness in face and arms bilaterally TECHNIQUE: Imaging protocol: Computed tomography of the head without contrast. Radiation optimization: All CT scans at this facility use at least one of these dose optimization techniques: automated exposure control; mA and/or kV adjustment per patient size (includes targeted exams where dose is matched to clinical indication); or iterative reconstruction. COMPARISON: No relevant prior studies available. RADIATION DOSE METRICS: Total DLP (mGy-cm): 675.74 FINDINGS: Brain: Normal. No hemorrhage. Unremarkable white matter. No mass effect. Cerebral ventricles: No ventriculomegaly. Paranasal sinuses: There is scattered mucosal thickening in the ethmoid maxillary and sphenoid sinuses. There is a small amount of fluid in the sphenoid sinus. Mastoid air cells: Visualized mastoid air cells are well aerated. Bones/joints: Unremarkable. No acute fracture. Soft tissues: Unremarkable. CT/CT head wo con* [id number] IMPRESSION: 1. No acute intracranial abnormality. 2. Paranasal sinusitis. Radiation Dose CTDIVOL = (mGy): DLP = 675.74 (mGy-cm) Dictated By: Db Ladd Signed By: Db Ladd Signed Date/Time: 05/05/21 1214 DD/ 1108 Discharge Plan Discharge Patient Disposition: Home Clinical Impression: Facial paresthesia Carpal tunnel syndrome Qualifiers: Laterality: bilateral Qualified Code(s): G56.03 - Carpal tunnel syndrome, bilateral upper limbs Condition: Stable Prescriptions: New prednisone 20 mg tablet 20 mg PO BID 7 Days Qty: 14 RF: 0 ibuprofen 800 mg tablet 800 mg PO Q8H PRN (Reason: pain) Qty: 20 RF: 0 No Action doxycycline hyclate 100 mg capsule 100 mg PO BID RF: 0 ciprofloxacin HCl 500 mg tablet 500 mg PO BID 7 Days Qty: 14 RF: 0 clindamycin HCl 150 mg capsule 300 mg PO QID 7 Days Qty: 56 RF: 0 Zofran 4 mg tablet 4 mg PO Q8H PRN (Reason: nausea and vomiting) Qty: 20 RF: 0 Discharge Orders: Discharge ED (Routine); Ordered 05/05/21 Ordered By: Mckay Hodges Referrals: Derrell Lechuga MD [Primary Care Provider] - Discharge Diet: Regular Discharge Activity: Increase activity as tolerated Patient Instructions: Carpal Tunnel Syndrome, Paresthesia (ED) Activity Restrictions/Additional Instructions: Follow-up with medical provider as directed within the next 5 to 7 days for reevaluation. Take medications as prescribed. Apply cold pack on wrist and by [id number] wrist braces to help control symptoms as well. Return to the ER or your medical provider if condition worsens. Please read and understand discharge instructions. Thank you for choosing [facility] for your healthcare needs today. Please realize this is an emergency room and that we are providing you with a medical screening exam and this may not be complete and all inclusive of all the testing and or work up that you may need to determine your ailment or severity of your illness. It is very important that you follow up as instructed or that you return to the Emergency Department should you have concerns or if your condition changes or worsens in any way. Coding Level of Care Code ED Hydroelectric Mechanic for Avinash Burciaga Exam Comprehensive
[2021-05-05 11:52] LABS: Basophils % 0.3 %; Hematocrit 44.8 % (37.0-47.0); Hemoglobin 15.2 g/dL (11.5-15.3); Lymphocytes # 1.6 10^3/uL (0.8-4.8); Lymphocytes % 50.8 %; Mean Corpuscular HGB Conc 33.9 g/dL (30.0-36.0); Mean Corpuscular Hemoglobin 31.5 pg (28.0-34.0); Mean Corpuscular Volume 92.9 fl (81-99); Monocytes # 0.4 10^3/uL (0.2-0.9); Monocytes % 11.7 %; Neutrophils # 1.09 10^3/uL (1.8-7.7); Neutrophils % 35.2 %; Nucleated Red Blood Cells % 0 %; Platelet Count 127 10^3/cmm (130-400); Red Blood Count 4.82 10^6/uL (4.1-5.3); Red Cell Distribution Width 12.4 % (12.1-15.1); White Blood Count 3.1 10^3/uL (4.0-10.0)
[2021-05-05 12:15] LABS: HCG, Serum Qual Negative (Negative)
[2021-05-05 12:26] LABS: Alanine Aminotransferase 45 U/L (0-33); Albumin Level 4.5 g/dL (3.5-5.2); Alkaline Phosphatase 80 IU/L (35-105); Anion Gap 13.5 (5-19); Aspartate Amino Transferase 48 U/L (0-32); Blood Urea Nitrogen 14 mg/dL (6-20); Calcium 9.4 mg/dL (8.5-10.5); Carbon Dioxide 26 mmol/L (22-29); Chloride 104 mmol/L (98-107); Creatinine Clr Calc Pharmacy 84.3718; Glomerular Filtration Rate 82.1 mL/min (90-130); Glucose 73 mg/dL (65-115); Lipase 21 U/L (13-60); Osmolality Calculated 289 mOsm/kg (285-295); Potassium 3.5 mmol/L (3.5-5.1); Sodium 140 mmol/L (136-145); Total Bilirubin 0.4 mg/dL (0.15-1.2); Total Protein 7.5 g/dL (6.6-8.7)
[2021-05-05 12:30] LABS: Amphetamines Screen Urine Negative (Negative); Barbiturates Screen Urine Negative (Negative); Benzodiazepines Screen Urine Negative (Negative); Cocaine Screen Urine Negative (Negative); Opiate Screen Urine Positive (Negative); PCP Screen Urine Negative (Negative); THC Screen Urine Positive (Negative)
[2021-05-05 12:31] LABS: Add Urine Microscopic? YES; Bilirubin Urine Neg (Negative); Blood Urine 3+ (Negative); Glucose Urine UA Norm (Normal); Ketones Urine Negative (Negative); Leukocyte Esterase Urine Negative (Negative); Nitrate Urine Negative (Negative); Protein Urine Neg (Negative); Specific Gravity, Urine 1.015 (1.005-1.030); Urine Appearance Hazy (CLEAR); Urine Color Yellow (Yellow); Urobilinogen Urine Norm (Negative); pH Urine 5 (5-7)
[2021-05-05 12:32] LABS: RBC Urine 25-40 /hpf (0-2); Squamous Epithelial Cell Urine 40-55 /hpf (0-5); Transitional Epi Cells Urine 0-4 /hpf; WBC Urine RARE /hpf (0-5)
[2021-05-05 12:33] LABS: Add Urine Culture? No; Bacteria Urine 1+ /hpf; Mucus Urine 2+ /hpf
[2021-05-05] MEDS: HYDROcodone-acetaminophen 5-325 mg Tablet 1 TAB PO (12:39)
[2021-05-05 13:20] VITALS: BP 128/90; PULSE 63; RESP 18; O2SAT 100
== END 2021-05-05 13:21 | disposition home or self-care (01) ==
PROVIDERS: Emergency Provider Physician Assistant; PCP Family Medicine
DX: R20.0 Anesthesia of skin (principal); R53.1 Weakness; G56.00 Carpal tunnel syndrome, unspecified upper limb
CPT/HCPCS: 70450; 80053; 80306; 81001; 83690; 84703; 85025; 99283

== ENCOUNTER → 2021-09-06 08:11 | Outpatient (BNVA) | payer BC, MEDICAID, SELFPAY | PROVIDERS: PCP Family Medicine; Visit Provider Psychiatry & Neurology Psychiatry | DX: F43.12 Post-traumatic stress disorder, chronic (principal) | CPT/HCPCS: 99204 ==

== ENCOUNTER 2022-09-01 17:41 | Outpatient (CLI) | payer BC, MEDICAID, SELFPAY ==
[2022-09-01] VITALS (9 sets, daily range): BP systolic 92–121; BP diastolic 55–71; PULSE 70–92; RESP 15; TEMP 35.8; BMI 30.1
[2022-09-01 18:27] LABS: Amphetamines Screen Urine Negative (Negative); Barbiturates Screen Urine Negative (Negative); Benzodiazepines Screen Urine Negative (Negative); Cocaine Screen Urine Negative (Negative); Nitrazine Paper, PH Inconclusive; Opiate Screen Urine Negative (Negative); PCP Screen Urine Negative (Negative); THC Screen Urine Positive (Negative)
[2022-09-01 18:27] LABS: Actim Prom Negative
[2022-09-01 18:33] LABS: Bilirubin Urine Neg (Negative); Blood Urine Neg (Negative); Glucose Urine UA Norm (Normal); Ketones Urine Negative (Negative); Leukocyte Esterase Urine 2+ (Negative); Nitrate Urine Negative (Negative); Protein Urine Neg (Negative); Specific Gravity, Urine 1.025 (1.005-1.030); Urine Appearance Hazy (CLEAR); Urine Color Yellow (Yellow); Urobilinogen Urine Neg (Negative); pH Urine 6 (5-7)
[2022-09-01 18:34] LABS: RBC Urine 0-4 /hpf (0-2); WBC Urine 80-100 /hpf (0-5)
[2022-09-01 18:35] LABS: Add Urine Culture? No; Bacteria Urine 1+ /hpf; Mucus Urine 2+ /hpf
[2022-09-01 22:37] LABS: Rapid Plasma Reagin Syphilis Nonreactive (Nonreactive)
== END 2022-09-01 19:52 | disposition home or self-care (01) ==
LOC: OPOB 17:42 → OBGYN 17:43
PROVIDERS: PCP Family Medicine; Visit Provider Family Medicine
DX: O26.899 Other specified pregnancy related conditions, unspecified trimester (principal); Z3A.00 Weeks of gestation of pregnancy not specified; N89.8 Other specified noninflammatory disorders of vagina
CPT/HCPCS: 36415; 59025; 80306; 81001; 83986; 84112; 86592; 99211

== ENCOUNTER 2022-09-04 07:50 | Inpatient (IN) | payer BC, MEDICAID, SELFPAY ==
[2022-09-04] VITALS (28 sets, daily range): BP systolic 84–128; BP diastolic 52–76; PULSE 54–88; RESP 16–17; TEMP 36.6–36.7; O2SAT 97; BMI 30.2
[2022-09-04 08:47] LABS: Basophils % 0.3 %; Eosinophils # 0.1 10^3/uL (0.0-0.8); Eosinophils % 0.7 %; Hematocrit 39.4 % (37.0-47.0); Hemoglobin 13.7 g/dL (11.5-15.3); Lymphocytes # 1.9 10^3/uL (0.8-4.8); Lymphocytes % 16.1 %; Mean Corpuscular HGB Conc 34.8 g/dL (30.0-36.0); Mean Corpuscular Hemoglobin 33.8 pg (28.0-34.0); Mean Corpuscular Volume 97.3 fl (81-99); Mean Platelet Volume 11.7 fL (7.4-10.4); Monocytes # 0.7 10^3/uL (0.2-0.9); Monocytes % 5.7 %; Neutrophils # 8.78 10^3/uL (1.8-7.7); Neutrophils % 76.7 %; Nucleated Red Blood Cells % 0 %; Platelet Count 186 10^3/cmm (130-400); Red Blood Count 4.05 10^6/uL (4.1-5.3); Red Cell Distribution Width 12.6 % (12.1-15.1); White Blood Count 11.5 10^3/uL (4.0-10.0)
[2022-09-04 09:07] LABS: Amphetamines Screen Urine Negative (Negative); Barbiturates Screen Urine Negative (Negative); Benzodiazepines Screen Urine Negative (Negative); Cocaine Screen Urine Negative (Negative); Opiate Screen Urine Negative (Negative); PCP Screen Urine Negative (Negative); THC Screen Urine Positive (Negative)
[2022-09-04] MEDS: oxytocin 30 UNIT/500 ML BAG 600 UNIT IV (09:32)
--- NOTE | 2022-09-04 09:46 | P.HP_ITS ---
Providers/Chief Complaint Admitting Physician: Simon Ga MD Primary Care Provider: Derrell Lechuga MD Chief Complaint: Abdominal pain HPI TUTOR COORDINATOR History of Present Illness Bekah Villarreal is a 36 year old female that presented to labor and delivery with contractions. Initial check was 5 cm with 90% effacement. She was candelaria every 4 minutes. The patient has had unremarkable care except for positive RPR. The patient had syphilis with previous was treated at that time and then retreated at the start of this . GBS was negative. Present Details : 7 Para: 5 Labs Rubella: Immune RPR: Positive GBS: Negative HBsAG: Negative Review of Systems Const: Denies: fever(s) or chills Eyes: Denies: change in vision Card: Denies: chest pain or palpitations Resp: Denies: dyspnea or productive cough GI: Denies: abdominal pain, nausea or vomiting : Denies: flank pain Musc: Reports: extremity pain and extremity swelling; Denies: neck pain, back pain or joint stiffness Skin/Breast: Denies: rash, pruritus or changes in skin color Neuro: Reports: difficulty walking; Denies: headache(s) Psych: Denies: anxiety or depression Elijah/Lymph: Denies: easy bruising All/Imm: Denies: urticaria Medications/Allergies Home Medications Medication Instructions Recorded Confirmed Last Taken Type 1 tab PO DAILY 09/01/22 09/04/22 09/03/22 History cephalexin 500 mg capsule 500 mg PO Q8H 09/04/22 09/04/22 09/04/22 History Allergies Allergy/AdvReac Type Severity Reaction Status Date / Time Penicillins Allergy Rash Verified 09/01/22 19:11 guaifenesin AdvReac Conor Verified 09/01/22 19:11 Jose Juan Syndrome PFSH TUTOR COORDINATOR PFSH: Medical History No pertinent past medical history Denies: Hypertension, hypercholesterolemia, diabetes, thyroid, heart, lung, liver, kidney problems, DVT/PE, genital herpes. Primary care provider: None Psychiatric care Surgical History No history of previous surgery Family History Father Diabetes Hypertension Stroke Mother Stroke Breast cancer diagnosed at age 35 Sister Stroke Autism twin Denies family history of Colon cancer Heart disease Hyperlipidemia Thyroid condition Social History Smoking and tobacco status: never smoked Quit status (tobacco): has tried quititng Number of times tried to quit tobacco: 3 Second hand smoke exposure: No Alcohol intake: former Other details last alcohol use: Drinks socially as a teenager History History History 5 Term 4 0 Miscarriages/Ectopic 0 Living Children 4 Vitals/I&O/Wt Last Vital Signs Pulse 68 09/04/22 09:43 BP 114/62 09/04/22 09:43 O2 Del Method 09/04/22 08:27 Weight last 48 hrs Weight 74.843 kg Physical Exam Const: COMMON NORMALS: no acute distress Neck/C-Spine: COMMON NORMALS: supple Resp: COMMON NORMALS: normal respiratory effort and No retractions Cardio: COMMON NORMALS: regular rate and regular rhythm GI: COMMON NORMALS: Normal to inspection, nondistended, normoactive bowel sounds present Extremity: COMMON NORMALS: no clubbing, cyanosis or edema Neuro: COMMON NORMALS: patient oriented x3, moves all extremities and no focal motor deficits Psych: COMMON NORMALS: mental status grossly normal and normal affect Skin: COMMON NORMALS: no rashes or lesions noted Data 09/04/22 07:55 A&P Assessment and plan (1) Term : Attestations Medical Necessity Statement*: anticipate overnight stay after delivery; Coding Level of Care Code Acute Code for Chg Fwd Diagnoses Term Z34.90
--- NOTE | 2022-09-04 09:52 | PM.DELIVERY ---
Delivery Note: Date of delivery: September 04, 2022 Pre-delivery diagnoses: term Post-delivery diagnoses: same, viable infant Estimated blood loss (mL): 150 Pre-Delivery Course: Patient presented with contractions and quickly progressed to 7cm. Soon after SROM occured. Delivery: Patient delivered precipitously soon after SROM with nursing staff. i was present for delivery of placenta. Review of perineum showed no lacerations. Uterus was appropriately firm and bleeding was minimal. Post-Delivery Status: stable, bleeding controlled. History History History 5 Term 4 0 Miscarriages/Ectopic 0 Living Children 4 A&P Assessment and plan (1) Term delivered: Proceed with routine care. Coding Level of Care Code Acute Code for Chg Fwd Diagnoses Term delivered O80
[2022-09-04] MEDS: lanolin oint 7 gm 1 APPLIC TOPICAL (11:03)
[2022-09-04] MEDS: benzocaine-menthol 78 gm Canister 1 SPRAY TOPICAL (11:03)
[2022-09-04] MEDS: ibuprofen 800 mg tablet PO ×3 (11:04→21:43)
[2022-09-04] MEDS: docusate sodium 100 mg Capsule PO (21:43)
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
[2022-09-04 23:08] LABS: Hematocrit 30.6 % (37.0-47.0); Hemoglobin 10.5 g/dL (11.5-15.3); Mean Corpuscular HGB Conc 34.3 g/dL (30.0-36.0); Mean Corpuscular Hemoglobin 33.5 pg (28.0-34.0); Mean Corpuscular Volume 97.8 fl (81-99); Mean Platelet Volume 11.6 fL (7.4-10.4); Platelet Count 165 10^3/cmm (130-400); Red Blood Count 3.13 10^6/uL (4.1-5.3); Red Cell Distribution Width 12.5 % (12.1-15.1); White Blood Count 11.5 10^3/uL (4.0-10.0)
[2022-09-05] MEDS: acetaminophen 325 mg Tablet 650 MG PO (02:47)
[2022-09-05 03:01] VITALS: BP 108/64; PULSE 80; RESP 17; TEMP 36.6; TEMP 36.7; O2SAT 97
[2022-09-05] MEDS: HYDROcodone-acetaminophen 5-325 mg Tablet PO (06:24)
--- NOTE | 2022-09-05 07:33 | P.DS_ITS ---
Discharge Providers DESKTOP PUBLISHER Date of Admission: 09/04/22 07:50 Date of Discharge: 09/05/22 Attending Provider at Admission: Simon Ga MD Attending Provider at Discharge: Simon Ga MD Primary Care Provider: Derrell Lechuga MD Diagnoses at Discharge Discharge Diagnosis (1) Term delivered: Status: Acute Reason for Visit Reason for Visit: Abdominal pain Brief History: This is a 36-year-old G7, P5 that presented with contractions. Hospital Course Hospital Course Patient presented with contractions and was initially dilated to 5 cm. The patient quickly transition to 7 cm and soon after her membranes ruptured sp ontaneously. Patient delivered precipitously soon after that. There were no complications during delivery or after delivery. Patient's care was unremarkable. Patient did have some cramping while breast-feeding but otherwise pain was well controlled. Eating was appropriate. Information Peripartum Data: Delivery Method: Vaginal Physical Exam Narrative: GA; alert and oriented x 3 HEENT: normal Breasts: engorged Nipples - skin intact Lungs; clear to auscultation Heart: regular rhythm, no murmurs. Abd: Appropriately tender. BS+. Uterine fundus below umbilicus. No Fundal Ten derness. Perineum: normal lochia. Extremities: no edema, no cyanosis, no tenderness. History History History 5 Term 4 0 Miscarriages/Ectopic 0 Living Children 4 Discharge Data Studies Completed and Pending Laboratory Results WBC 11.5 10^3/uL (4.0-10.0) H 09/04/22 22:55 RBC 3.13 10^6/uL (4.1-5.3) L 09/04/22 22:55 Hgb 10.5 g/dL (11.5-15.3) L 09/04/22 22:55 Hct 30.6 % (37.0-47.0) L 09/04/22 22:55 MCV 97.8 fl (81-99) 09/04/22 22:55 MCH 33.5 pg (28.0-34.0) 09/04/22 22:55 MCHC 34.3 g/dL (30.0-36.0) 09/04/22 22:55 RDW 12.5 % (12.1-15.1) 09/04/22 22:55 Plt Count 165 10^3/cmm (130-400) 09/04/22 22:55 MPV 11.6 fL (7.4-10.4) H 09/04/22 22:55 Neut % (Auto) 76.7 % 09/04/22 07:55 Lymph % (Auto) 16.1 % 09/04/22 07:55 Edmunds % (Auto) 5.7 % 09/04/22 07:55 Eos % (Auto) 0.7 % 09/04/22 07:55 Baso % (Auto) 0.3 % 09/04/22 07:55 Neut # (Auto) 8.78 10^3/uL (1.8-7.7) H 09/04/22 07:55 Lymph # (Auto) 1.9 10^3/uL (0.8-4.8) 09/04/22 07:55 Edmunds # (Auto) 0.7 10^3/uL (0.2-0.9) 09/04/22 07:55 Eos # (Auto) 0.1 10^3/uL (0.0-0.8) 09/04/22 07:55 Baso # (Auto) 0.0 10^3/uL (0.0-0.1) 09/04/22 07:55 Nucleated RBC % (auto) 0 % 09/04/22 07:55 Nucleated RBCs # 0.0 /100WBC 09/04/22 07:55 Urine Opiates Screen Negative ng/mL (Negative) 09/04/22 08:35 Ur Barbiturates Screen Negative ng/mL (Negative) 09/04/22 08:35 Ur Phencyclidine Scrn Negative ng/mL (Negative) 09/04/22 08:35 Ur Amphetamines Screen Negative ng/mL (Negative) 09/04/22 08:35 U Benzodiazepines Scrn Negative ng/mL (Negative) 09/04/22 08:35 Urine Cocaine Screen Negative ng/mL (Negative) 09/04/22 08:35 U Marijuana (THC) Screen Positive ng/mL (Negative) H 09/04/22 08:35 Vitals Last Vital Signs Temp 98.0 F 09/05/22 03:01 Pulse 80 09/05/22 03:01 Resp 17 09/05/22 03:01 BP 108/64 09/05/22 03:01 Pulse Ox 97 09/05/22 03:01 O2 Del Method 09/05/22 03:01 Discharge Plan Discharge Patient Disposition: Home Condition: Stable Prescriptions: Continued cephalexin 500 mg Capsule 500 mg PO Q8H 1 tab PO DAILY Discharge Orders: Discharge Order (Routine); Ordered 09/05/22 Ordered By: Simon Ga Referrals: Simon Ga MD [Physician] - 6 Weeks Discharge Diet: Usual diet Discharge Activity: Limit activity as instructed Patient Instructions: Opioid Safety Discharge Attestations DESKTOP PUBLISHER Time Spent in Discharge Care*: less than 30 min Coding Level of Care Code Acute Code for Chg Fwd Diagnoses Term delivered O80
[2022-09-05] MEDS: ibuprofen 800 mg tablet PO (09:37)
[2022-09-05] MEDS: prenatal vitamin Capsule 1 CAP PO (09:37)
[2022-09-05] MEDS: docusate sodium 100 mg Capsule PO (09:37)
[2022-09-05] MEDS: ondansetron 4 MG Tablet PO (09:38)
[2022-09-05 12:15] VITALS: BP 110/84; PULSE 92; RESP 16; TEMP 36.6; O2SAT 97
== END 2022-09-05 12:30 | disposition home or self-care (01) | DRG 998 ==
LOC: OPOB 09:36 → OBGYN 09:36
PROVIDERS: Admitting Provider Family Medicine; PCP Family Medicine; Visit Provider Family Medicine
DX: O98.12 Syphilis complicating childbirth (principal); Z3A.36 36 weeks gestation of pregnancy; A53.9 Syphilis, unspecified
CPT/HCPCS: 36415; 59025; 59409; 80306; 85025; 85027; 99211; J2590; Q0162

== ENCOUNTER 2024-02-28 06:15 | Emergency (ER) | payer BC, MEDICAID, SELFPAY ==
[2024-02-28 06:27] VITALS: BP 103/71; PULSE 87; RESP 18; TEMP 36.4; O2SAT 96; BMI 20.2
--- NOTE | 2024-02-28 07:18 | ED_ITS ---
HPI - Ear Problem General: Chief complaint: Ear Stated complaint: left ear pain Time Seen by Provider: 02/28/24 06:29 History of Present Illness: 38-year-old female presents emergency ro om complaining of bilateral ear pain left greater than right. She has had some drainage from the ears bilaterally as well again on the left slightly more noticeable on the right. She denies any fever sweats chills recently was on eardrops for otitis externa symptoms have recurred. Associated symptoms: Denies fever(s) or neck pain Related Data Previous Rx's Medication Instructions Recorded ondansetron 8 mg disintegrating 8 mg PO Q8H PRN nausea and 01/07/24 tablet vomiting 5 days #15 tabs cefdinir 300 mg capsule 300 mg PO BID #14 caps 02/28/24 diclofenac sodium 75 mg 75 mg PO Q12H PRN pain #20 tabs 02/28/24 tablet,delayed release [id number] 3.3 5 drp otic (ear) QID 14 days #10 mL 02/28/24 mg-3 mg-10 mg-0.5 mg/mL ear drops,susp (Cortisporin-TC) Allergies Allergy/AdvReac Type Severity Reaction Status Date / Time Penicillins Allergy Rash Verified 01/07/24 12:49 guaifenesin AdvReac Conor Verified 01/07/24 12:49 Jose Juan Syndrome Review of Systems Const: Denies: fever(s) or chills Card: Denies: chest pain Resp: Denies: dyspnea GI: Denies: abdominal pain : Denies: dysuria, urinary frequency or urinary urgency Musc: Denies: neck pain or back pain Skin/Breast: Denies: rash PFSH ED PFSH: Medical History No pertinent past medical history Denies: Hypertension, hypercholesterolemia, diabetes, thyroid, heart, lung, liver, kidney problems, DVT/PE, genital herpes. Primary care provider: None Surgical History No history of previous surgery Family History Father Diabetes Hypertension Stroke Mother Stroke Breast cancer diagnosed at age 35 Sister Stroke Autism twin Denies family history of Colon cancer Heart disease Hyperlipidemia Thyroid disease Social History Smoking and tobacco/nicotine status: unknown if used tobacco/nicotine Quit status (tobacco/nicotine): has tried quititng Number of times tried to quit tobacco: 3 Second hand smoke exposure: No Alcohol intake: former Substance/Drug Use: never Physical Exam Const: COMMON NORMALS: no acute distress GENERAL APPEARANCE: cooperative and comfortable ORIENTATION/CONSCIOUSNESS: Yes awake, Yes oriented to person, Yes oriented to place and Yes oriented to time HENMT: COMMON NORMALS: normocephalic, atraumatic and hearing grossly normal bilaterally HEAD & SCALP: normocephalic and atraumatic OTHER: Bilaterally external auditory canals are red and inflamed with some edema slight drainage. The left TM is also red and inflamed no drainage or perforation. Resp: COMMON NORMALS: normal respiratory effort, No retractions, No use of accessory muscles and clear to auscultation bilaterally AUSCULTATION: clear to auscultation bilaterally Cardio: COMMON NORMALS: regular rate, regular rhythm and No murmurs present (Cardio) RATE: regular rate RHYTHM: regular rhythm Extremity: COMMON NORMALS: normal to inspection, capillary refill normal, no clubbing, cyanosis or edema, no calf tenderness and no pedal edema Neuro: SENSORIUM/ORIENTATION: Yes oriented to person, Yes oriented to place and Yes oriented to time Skin: COMMON NORMALS: no rashes or lesions noted GENERAL SKIN EXAM: no rashes or lesions noted Course Vital Signs: Vital signs: Vital Signs Temperature 97.5 F L 02/28/24 06:27 Pulse Rate 76 02/28/24 07:35 Respiratory Rate 20 H 02/28/24 07:35 Blood Pressure 112/58 02/28/24 07:35 Pulse Oximetry 98 02/28/24 07:35 MDM - Ear Medical Decision Making Bilateral otitis externa started on Corticosporin drops 5 drops 4 times a day. Additionally left TM looked a little inflamed recommend cefdinir 300 twice daily for 7 days follow-up with primary care doctor if no improvement No radiology studies performed this visit Discharge Plan Discharge Patient Disposition: Home Clinical Impression: External otitis of left ear, Acute left otitis media Condition: Stable Prescriptions: New Cortisporin-TC 3.3-3-10-0.5 mg/mL drops,suspension 5 drp otic (ear) QID 14 Days Qty: 10 0RF cefdinir 300 mg capsule 300 mg PO BID Qty: 14 0RF diclofenac sodium 75 mg tablet,delayed release (DR/EC) 75 mg PO Q12H PRN (Reason: pain) Qty: 20 0RF Discontinued doxycycline hyclate 100 mg tablet 100 mg PO BID 10 Days Qty: 20 0RF No Action ondansetron 8 mg tablet,disintegrating 8 mg PO Q8H PRN (Reason: nausea and vomiting) 5 Days Qty: 15 0RF Discharge Orders: Discharge ED (Routine); Ordered 02/28/24 Ordered By: Wayne Yee Referrals: Derrell Lechuga MD [Primary Care Provider] - Discharge Diet: Usual diet Discharge Activity: Resume usual activity Patient Instructions: Otitis Externa - Adult, Opioid Safety, Pain Management Activity Restrictions/Additional Instructions: Thank you for choosing [facility] for your healthcare needs today. It is very important that you follow up as instructed or that you return to the Emergency Department should you have concerns or if your condition changes or wo rsens in any way. You were seen in the emergency room with complaint of ear pain with drainage. There are some mild irritation of the outer ear canal in both ears. You were given antibiotics 1 pill twice a day for 7 days also eardrops 5 drops in each ear canal 4 times a day for 14 days. Follow-up with primary care doctor if not improving. Coding Level of Care Code ED [employer] Specialist for Avinash Burciaga
[2024-02-28 07:35] VITALS: BP 112/58; PULSE 76; RESP 20; O2SAT 98
== END 2024-02-28 07:36 | disposition home or self-care (01) ==
PROVIDERS: Emergency Provider Family Medicine; PCP Family Medicine
DX: H66.92 Otitis media, unspecified, left ear (principal); H60.92 Unspecified otitis externa, left ear
CPT/HCPCS: 99283

== ENCOUNTER 2024-03-23 15:21 | Emergency (ER) | payer BC, MEDICAID, SELFPAY ==
[2024-03-23 15:34] VITALS: BP 108/73; PULSE 79; RESP 16; TEMP 36.6; O2SAT 98; BMI 22.6
[2024-03-23 15:45] VITALS: BP 113/86; PULSE 71; RESP 16; O2SAT 98
--- NOTE | 2024-03-23 15:48 | W.ED.ABDPA2 ---
HPI - Abdominal Pain General: Chief Complaint: Abdominal Pain Stated Complaint: unable to have BM over a week Time Seen by Provider: 03/23/24 15:26 Source: patient Mode of arrival: ambulatory Limitations: no limitations History of Present Illness: Patient is a 38-year-old female presents to ED today with complaint of constipation. Patient states she has not had a normal bowel movement in 14 days. She states if she strains really hard she will pass a few small pellets. She is having some mild lower abdominal intermittent cramping. She states she is 9 weeks . She states she just had an ultrasound a few days ago through [facility] which showed a live IUP with heart rate. Patient is not having any pelvic pain or vaginal bleeding. She has tried [id number] stool softeners and laxatives without relief. She states she is continuing to eat and drink normally. She has had occasional/rare nausea and vomiting but has had this since . No fevers. No urinary complaints. Arrives in NAD with stable vital signs. MD elicited complaint: abdominal pain Pertinent past history: constipation Onset (ago): week(s) Pain Consistency: intermittent Location: Other (lower abdomen) Severity: moderate Quality: cramping Radiation: none Migration to: no migration Exacerbating factors: nothing Relieving factors: nothing Associated Symptoms: Reports constipation; Denies chills, dysuria, fever(s), hematochezia and melena Related Data Previous Rx's Medication Instructions Recorded ondansetron 8 mg disintegrating 8 mg PO Q8H PRN nausea and 01/07/24 tablet vomiting 5 days #15 tabs cephalexin 500 mg capsule 500 mg PO Q6H 7 days #28 caps 03/23/24 Allergies Allergy/AdvReac Type Severity Reaction Status Date / Time Penicillins Allergy Rash Verified 01/07/24 12:49 guaifenesin AdvReac Conor Verified 01/07/24 12:49 Jose Juan Syndrome Review of Systems Const: Denies: fever(s), chills, body aches, fatigue or malaise Card: Denies: chest pain Resp: Denies: dyspnea GI: Reports: abdominal pain and constipation; Denies: hematochezia or melena : Denies: flank pain, dysuria, vaginal bleeding, vaginal discharge or pelvic pain Musc: Denies: back pain Skin/Breast: Denies: rash Neuro: Denies: headache(s), numbness in extremities, weakness in extremities or sensory changes PFSH ED PFSH: Medical History No pertinent past medical history Denies: Hypertension, hypercholesterolemia, diabetes, thyroid, heart, lung, liver, kidney problems, DVT/PE, genital herpes. Primary care provider: None Surgical History No history of previous surgery Family History Father Diabetes Hypertension Stroke Mother Stroke Breast cancer diagnosed at age 35 Sister Stroke Autism twin Denies family history of Colon cancer Heart disease Hyperlipidemia Thyroid disease Social History Smoking and tobacco/nicotine status: unknown if used tobacco/nicotine Quit status (tobacco/nicotine): has tried quititng Number of times tried to quit tobacco: 3 Second hand smoke exposure: No Alcohol intake: former Substance/Drug Use: never Physical Exam Const: COMMON NORMALS: no acute distress, average body habitus, patient oriented x3, no limitations, healthy appearing, alert and well nourished Chest: COMMONS NORMALS: normal inspection of the chest and normal palpation of entire chest wall Resp: COMMON NORMALS: normal respiratory effort and clear to auscultation bilaterally AUSCULTATION: clear to auscultation bilaterally Cardio: COMMON NORMALS: regular rate and regular rhythm RATE: regular rate RHYTHM: regular rhythm GI: COMMON NORMALS: Normal to inspection, nondistended, normoactive bowel sounds present, Soft to palpation, No hepatosplenomegaly present and no masses INSPECTION: Yes normal to inspection AUSCULTATION: Yes normoactive bowel sounds PALPATION: Yes Soft to palpation, Yes Tenderness to palpation present (GI) (mild lower abdominal pain; non-surgical abdomen), No Guarding due to palpation present (GI), No Rigid due to palpation and Yes No hepatosplenomegaly present : COMMON NORMALS: Yes no CVA tenderness BLADDER/KIDNEY EXAM: Yes no CVA tenderness Back/Pelvis: COMMON NORMALS: no CVA tenderness Neuro: COMMON NORMALS: patient oriented x3 SENSORIUM/ORIENTATION: Yes alert Skin: COMMON NORMALS: no rashes or lesions noted GENERAL SKIN EXAM: no rashes or lesions noted Course Vital Signs: Vital signs: Vital Signs Temperature 97.8 F 03/23/24 15:34 Pulse Rate 71 03/23/24 15:45 Respiratory Rate 16 03/23/24 15:45 Blood Pressure 113/86 03/23/24 15:45 Pulse Oximetry 98 03/23/24 15:45 Oxygen Delivery Me thod Room Air 03/23/24 15:45 MDM - Abdominal Pain Medical Decision Making Patient was able to have a bowel movement here after enema. She will be sent home with mixture of lactulose/mineral oil/milk of magnesia to drink when she gets home and will have her continue bowel prep with stool softeners, MiraLAX, Senokot. Blood work is unremarkable. UA showing evidence for UTI with 1+ leuks and 40-[address] on antibiotics for this. Return precautions given. Medical Records I reviewed the patient's medical records. Lab Data I reviewed the patient's lab results. 03/23/24 16:02 03/23/24 16:02 Labs/Radiology: Laboratory Results WBC 6.74 10^3/uL (3.29-11.43) 03/23/24 16:02 RBC 4.14 10^6/uL (3.85-5.65) 03/23/24 16:02 Hgb 13.50 g/dL (11.27-16.99) 03/23/24 16:02 Hct 38.9 % (36-47) 03/23/24 16:02 MCV 94.0 fl (85-98) 03/23/24 16:02 MCH 32.6 pg (27-33) 03/23/24 16:02 MCHC 34.7 g/dL (30-55) 03/23/24 16:02 RDW 12.8 % (12.1-15.1) 03/23/24 16:02 Plt Count 167 10^3/cmm (157-399) 03/23/24 16:02 MPV 10.5 fL (7.4-10.4) H 03/23/24 16:02 Neut % (Auto) 60.4 % 03/23/24 16:02 Lymph % (Auto) 28.2 % 03/23/24 16:02 [place] % (Auto) 7.6 % 03/23/24 16:02 Eos % (Auto) 3.1 % 03/23/24 16:02 Baso % (Auto) 0.4 % 03/23/24 16:02 Neut # (Auto) 4.07 10^3/uL (1.8-7.7) 03/23/24 16:02 Lymph # (Auto) 1.9 10^3/uL (0.8-4.8) 03/23/24 16:02 [place]urry # (Auto) 0.5 10^3/uL (0.2-0.9) 03/23/24 16:02 Eos # (Auto) 0.2 10^3/uL (0.0-0.8) 03/23/24 16:02 Baso # (Auto) 0.0 10^3/uL (0.0-0.1) 03/23/24 16:02 Nucleated RBC % (auto) 0 % 03/23/24 16:02 Nucleated RBCs # 0.0 /100WBC 03/23/24 16:02 Sodium 136 mmol/L (136-145) 03/23/24 16:02 Potassium 3.8 mmol/L (3.5-5.1) 03/23/24 16:02 Chloride 103 mmol/L (98-107) 03/23/24 16:02 Carbon Dioxide 22 mmol/L (22-29) 03/23/24 16:02 Anion Gap 14.8 (5-19) 03/23/24 16:02 BUN 7 mg/dL (6-20) 03/23/24 16:02 Creatinine 0.6 mg/dL (0.5-0.9) 03/23/24 16:02 GFR Calculation 112.5 mL/min (90-130) 03/23/24 16:02 Glucose 79 mg/dL (65-115) 03/23/24 16:02 Calculated Osmolality 279 mOsm/kg (285-295) L 03/23/24 16:02 Calcium 9.0 mg/dL (8.5-10.5) 03/23/24 16:02 Total Bilirubin 0.4 mg/dL (0.15-1.2) 03/23/24 16:02 AST 23 U/L (0-32) 03/23/24 16:02 ALT 35 U/L (0-33) H 03/23/24 16:02 Alkaline Phosphatase 85 U/L (35-105) 03/23/24 16:02 Total Protein 7.0 g/dL (6.6-8.7) 03/23/24 16:02 Albumin 4.3 g/dL (3.5-5.2) 03/23/24 16:02 Globulin 2.7 g/dL (1.3-4.6) 03/23/24 16:02 Urine Color Yellow (Yellow) 03/23/24 16:25 Urine Appearance Slightly cloudy (CLEAR) 03/23/24 16:25 Urine pH 6 (5-7) 03/23/24 16:25 Ur Specific [place] 1.020 (1.005-1.030) 03/23/24 16:25 Urine Protein Neg (Negative) 03/23/24 16:25 Urine Glucose (UA) Norm (Normal) 03/23/24 16:25 Urine Ketones Negative (Negative) 03/23/24 16:25 Urine Blood Neg (Negative) 03/23/24 16:25 Urine Nitrate Negative (Negative) 03/23/24 16:25 Urine Bilirubin Neg (Negative) 03/23/24 16:25 Urine Urobilinogen Norm mg/dL (Negative) 03/23/24 16:25 Ur Leukocyte Esterase 1+ (Negative) H 03/23/24 16:25 Urine RBC 5-10 /hpf (0-2) H 03/23/24 16:25 Urine WBC 40-55 /hpf (0-5) H 03/23/24 16:25 Ur Squamous Epith Cells 0-4 /hpf (0-5) H 03/23/24 16:25 Amorphous Sediment Not Reportable 03/23/24 16:25 Urine Bacteria Trace /hpf (NONE) 03/23/24 16:25 No radiology studies performed this visit Discharge Plan Discharge Patient Disposition: Home Clinical Impression: Constipation Qualifiers: Constipation type: unspecified constipation type Qualified Code(s): K59.00 - Constipation, unspecified Acute cystitis Qualifiers: Hematuria presence: with hematuria Qualified Code(s): N30.01 - Acute cystitis with hematuria Condition: Stable Prescriptions: New cephalexin 500 mg capsule 500 mg PO Q6H 7 Days Qty: 28 0RF Discontinued cefdinir 300 mg capsule 300 mg PO BID Qty: 14 0RF diclofenac sodium 75 mg tablet,delayed release (DR/EC) 75 mg PO Q12H PRN (Reason: pain) Qty: 20 0RF No Action ondansetron 8 mg tablet,disintegrating 8 mg PO Q8H PRN (Reason: nausea and vomiting) 5 Days Qty: 15 0RF Discharge Orders: Discharge ED (Routine); Ordered 03/23/24 Ordered By: Marily Rose Referrals: Derrell Lechuga MD [Primary Care Provider] - Patient Instructions: Constipation (DC), Urinary Tract Infection in (ED) Activity Restrictions/Additional Instructions: As we discussed, please start taking MiraLAX at a dose of a full cap full morning and evening. You can take this along with stool softener/Colace and Senokot. Begin your antibiotics immediately for your urinary tract infection. You need to return the emergency department for worsening abdominal pain, severe flank pain, repetitive episodes of vomiting, fevers, generally feeling worse or unwell, or any other concerns you may have. Coding Level of Care Code ED [employer] for Avinash Burciaga
[2024-03-23 16:08] LABS: Basophils % 0.4 %; Eosinophils # 0.2 10^3/uL (0.0-0.8); Eosinophils % 3.1 %; Hematocrit 38.9 % (36-47); Lymphocytes # 1.9 10^3/uL (0.8-4.8); Lymphocytes % 28.2 %; Mean Corpuscular HGB Conc 34.7 g/dL (30-55); Mean Corpuscular Hemoglobin 32.6 pg (27-33); Mean Platelet Volume 10.5 fL (7.4-10.4); Monocytes # 0.5 10^3/uL (0.2-0.9); Monocytes % 7.6 %; Neutrophils # 4.07 10^3/uL (1.8-7.7); Neutrophils % 60.4 %; Nucleated Red Blood Cells % 0 %; Platelet Count 167 10^3/cmm (157-399); Red Blood Count 4.14 10^6/uL (3.85-5.65); Red Cell Distribution Width 12.8 % (12.1-15.1); White Blood Count 6.74 10^3/uL (3.29-11.43)
[2024-03-23 16:26] LABS: Alanine Aminotransferase 35 U/L (0-33); Albumin Level 4.3 g/dL (3.5-5.2); Alkaline Phosphatase 85 U/L (35-105); Anion Gap 14.8 (5-19); Aspartate Amino Transferase 23 U/L (0-32); Blood Urea Nitrogen 7 mg/dL (6-20); Carbon Dioxide 22 mmol/L (22-29); Chloride 103 mmol/L (98-107); Creatinine Clr Calc Pharmacy 110.7832; Globulin 2.7 g/dL (1.3-4.6); Glomerular Filtration Rate 112.5 mL/min (90-130); Glucose 79 mg/dL (65-115); Osmolality Calculated 279 mOsm/kg (285-295); Potassium 3.8 mmol/L (3.5-5.1); Sodium 136 mmol/L (136-145); Total Bilirubin 0.4 mg/dL (0.15-1.2)
[2024-03-23 16:56] LABS: Add Urine Microscopic? YES; Bacteria Urine TRACE /hpf; Bilirubin Urine Neg (Negative); Blood Urine Neg (Negative); Glucose Urine UA Norm (Normal); Ketones Urine Negative (Negative); Leukocyte Esterase Urine 1+ (Negative); Nitrate Urine Negative (Negative); Protein Urine Neg (Negative); Squamous Epithelial Cell Urine 0-4 /hpf (0-5); Urine Appearance Slightly Cloudy (CLEAR); Urine Color Yellow (Yellow); Urobilinogen Urine Norm (Negative); WBC Urine 40-55 /hpf (0-5); pH Urine 6 (5-7)
[2024-03-23 16:57] LABS: Add Urine Culture? Yes
[2024-03-23] MEDS: mineral oil 30 mL UDC PO (17:09)
[2024-03-23] MEDS: magnesium hydroxide 30 mL UDC PO (17:09)
[2024-03-23] MEDS: lactulose oral liq 20 gm/30 mL UDC 30 GM PO (17:09)
[2024-03-23 17:15] VITALS: BP 116/72; PULSE 86; O2SAT 97
== END 2024-03-23 17:16 | disposition home or self-care (01) ==
PROVIDERS: Emergency Provider Physician Assistant; PCP Family Medicine
DX: K59.00 Constipation, unspecified (principal); N30.01 Acute cystitis with hematuria
CPT/HCPCS: 36415; 80053; 81001; 85025; 87086; 99283

== ENCOUNTER 2024-09-22 19:27 | Outpatient (CLI) | payer BC, MEDICAID, SELFPAY ==
[2024-09-22] VITALS (7 sets, daily range): BP systolic 106–118; BP diastolic 64–78; PULSE 83–93; RESP 17; TEMP 36.7; O2SAT 99; BMI 31.8
== END 2024-09-22 21:20 | disposition home or self-care (01) ==
LOC: OPOB 19:38 → OBGYN 19:39
PROVIDERS: PCP Family Medicine; Visit Provider Family Medicine
DX: O26.899 Other specified pregnancy related conditions, unspecified trimester (principal); R10.9 Unspecified abdominal pain; Z3A.00 Weeks of gestation of pregnancy not specified
CPT/HCPCS: 59025; 99211

== ENCOUNTER 2024-10-02 13:10 | Outpatient (CLI) | payer BC, MEDICAID, SELFPAY ==
[2024-10-02 13:26] VITALS: BP 128/68; PULSE 85
[2024-10-02 13:36] VITALS: BMI 32.5
[2024-10-02 13:42] VITALS: BP 108/57; PULSE 90
[2024-10-02 13:57] VITALS: BP 122/74; PULSE 90
[2024-10-02 14:12] VITALS: BP 126/77; PULSE 77
[2024-10-02 14:25] VITALS: BP 126/77; PULSE 77; RESP 16
== END 2024-10-02 14:26 | disposition home or self-care (01) ==
LOC: OPOB 13:16 → OBGYN 13:18
PROVIDERS: PCP Family Medicine; Visit Provider Family Medicine
DX: O09.529 Supervision of elderly multigravida, unspecified trimester (principal); Z3A.00 Weeks of gestation of pregnancy not specified
CPT/HCPCS: 59025; 99211

== ENCOUNTER 2024-10-04 12:05 | Outpatient (CLI) | payer BC, MEDICAID, SELFPAY ==
[2024-10-04 12:00] VITALS: BMI 32.8
[2024-10-04 12:14] VITALS: BP 121/71; PULSE 84
[2024-10-04 12:29] VITALS: BP 112/61; PULSE 88
[2024-10-04 13:00] VITALS: RESP 16; TEMP 36.7
== END 2024-10-04 13:00 | disposition home or self-care (01) ==
LOC: OPOB 12:05 → OBGYN 12:06
PROVIDERS: PCP Family Medicine; Visit Provider Family Medicine
DX: O09.519 Supervision of elderly primigravida, unspecified trimester (principal); Z3A.00 Weeks of gestation of pregnancy not specified
CPT/HCPCS: 59025

== ENCOUNTER 2024-10-07 12:25 | Outpatient (CLI) | payer BC, MEDICAID, SELFPAY ==
[2024-10-07 12:25] VITALS: BMI 32.9
[2024-10-07 12:35] VITALS: BP 124/71; PULSE 97
[2024-10-07 12:50] VITALS: BP 98/51; PULSE 89
[2024-10-07 13:04] VITALS: BP 98/59; PULSE 92
== END 2024-10-07 13:08 | disposition home or self-care (01) ==
LOC: OPOB 12:25 → OBGYN 12:26
PROVIDERS: PCP Family Medicine; Visit Provider Family Medicine
DX: O09.519 Supervision of elderly primigravida, unspecified trimester (principal); Z3A.00 Weeks of gestation of pregnancy not specified
CPT/HCPCS: 59025

== ENCOUNTER 2024-10-11 10:36 | Outpatient (CLI) | payer BC, MEDICAID, SELFPAY ==
[2024-10-11 10:35] VITALS: BMI 33.1
[2024-10-11 10:41] VITALS: BP 127/67; PULSE 88
[2024-10-11 10:56] VITALS: BP 118/66; PULSE 88
[2024-10-11 11:12] VITALS: BP 118/66; PULSE 88; O2SAT 98
== END 2024-10-11 11:17 | disposition home or self-care (01) ==
LOC: OPOB 10:36 → OBGYN 10:37
PROVIDERS: PCP Family Medicine; Visit Provider Family Medicine
DX: O09.519 Supervision of elderly primigravida, unspecified trimester (principal); Z3A.00 Weeks of gestation of pregnancy not specified
CPT/HCPCS: 59025; 99211

== ENCOUNTER 2024-10-14 10:10 | Outpatient (CLI) | payer BC, MEDICAID, SELFPAY ==
[2024-10-14 10:17] VITALS: BP 117/71; PULSE 91
[2024-10-14 10:32] VITALS: BP 118/74; PULSE 96
[2024-10-14 10:37] VITALS: BP 117/74; PULSE 74; RESP 16
== END 2024-10-14 10:38 | disposition home or self-care (01) ==
LOC: OPOB 10:13 → OBGYN 10:13
PROVIDERS: PCP Family Medicine; Visit Provider Family Medicine
DX: O09.519 Supervision of elderly primigravida, unspecified trimester (principal); Z3A.00 Weeks of gestation of pregnancy not specified
CPT/HCPCS: 59025; 99211

== ENCOUNTER 2024-10-18 11:30 | Outpatient (CLI) | payer BC, MEDICAID, SELFPAY ==
[2024-10-18 11:47] VITALS: BP 116/72; PULSE 90
[2024-10-18 11:50] VITALS: RESP 16; BMI 32.9
[2024-10-18 12:02] VITALS: BP 109/72; PULSE 88
[2024-10-18 12:17] VITALS: BP 106/72; PULSE 85
[2024-10-18 12:25] VITALS: BP 106/72; PULSE 85; RESP 16
== END 2024-10-18 12:25 | disposition home or self-care (01) ==
LOC: OPOB 11:32 → OBGYN 11:34
PROVIDERS: PCP Family Medicine; Visit Provider Family Medicine
DX: O09.519 Supervision of elderly primigravida, unspecified trimester (principal); Z3A.00 Weeks of gestation of pregnancy not specified
CPT/HCPCS: 59025; 99211

== ENCOUNTER 2024-10-20 14:07 | Inpatient (IN) | payer BC, MEDICAID, SELFPAY ==
[2024-10-20] VITALS (20 sets, daily range): BP systolic 104–118; BP diastolic 56–72; PULSE 67–92; RESP 16; TEMP 36–36.7; BMI 32.9
[2024-10-20] MEDS: lactated ringers 1,000 ML 125 ML IV (08:09)
[2024-10-20] MEDS: oxytocin 30 UNIT/500 ML BAG IV (08:20)
[2024-10-20 08:46] LABS: Basophils % 0.2 %; Eosinophils # 0.2 10^3/uL (0.0-0.8); Eosinophils % 1.7 %; Hematocrit 32.6 % (36-47); Lymphocytes # 1.5 10^3/uL (0.8-4.8); Lymphocytes % 16.6 %; Mean Corpuscular Hemoglobin 35.1 pg (27-33); Mean Corpuscular Volume 100.3 fl (85-98); Mean Platelet Volume 11.1 fL (7.4-10.4); Monocytes # 0.7 10^3/uL (0.2-0.9); Neutrophils # 6.71 10^3/uL (1.8-7.7); Neutrophils % 72.4 %; Nucleated Red Blood Cells % 0 %; Platelet Count 157 10^3/cmm (157-399); Red Blood Count 3.25 10^6/uL (3.85-5.65); Red Cell Distribution Width 13.2 % (12.1-15.1); White Blood Count 9.27 10^3/uL (3.29-11.43)
[2024-10-20 08:49] LABS: Amphetamines Screen Urine Negative (Negative); Barbiturates Screen Urine Negative (Negative); Benzodiazepines Screen Urine Negative (Negative); Cocaine Screen Urine Negative (Negative); Opiate Screen Urine Negative (Negative); PCP Screen Urine Negative (Negative); THC Screen Urine Negative (Negative)
--- NOTE | 2024-10-20 14:01 | PC.NURSE ---
pitocin initiated from induction bag. Rate changed to 600 mL/hr at this time.
--- NOTE | 2024-10-20 14:08 | PM.OPHPUD ---
Labor & Delivery H&P Update Date of Procedure: October 20, 2024 Date H&P Performed: 10/13/24 Admission Diagnosis: IUP at 39w0d gestation AMA Abnormal NIPT, normal level2 u/s Primary indication for procedure: Advanced maternal age Planned procedure: Induction of labor and delivery
--- NOTE | 2024-10-20 14:09 | PM.DELIVERY ---
Delivery Note: Date of delivery: October 20, 2024 Estimated blood loss (mL): 100 Pre-Delivery Course: This is a 38-year-old G8, P6 at 39 weeks 0 days gestation who was admitted for induction secondary to advanced maternal age. She had routine care at [facility] and also temporarily in [place]. Her was complicated by advanced maternal age, abnormal NIPT, and third trimester polyhydramnios. She was referred to [facility] and had a normal level 2 anatomy ultrasound. The patient declined amniocentesis. There were no other complications during the . labs: Blood type O+ antibody negative, hepatitis B nonreactive, hepatitis C nonreactive, HIV nonreactive, rubella immune, GC chlamydia negative, RPR was positive but patient was treated during her last for syphilis and had an unchanged 1:4 titer during this , UDS was positive for marijuana, she passed her glucose tolerance test, she was GBS negative Delivery: This is a 38-year-old G8, P6 at 39 weeks 0 days gestation who was admitted for induction secondary to advanced maternal age. Her cervix was favorable so she was started on Pitocin. When she was 5 cm dilated she underwent artificial rupture of membranes with a copious amount of clear fluid. Less than an hour later she had a normal spontaneous vaginal delivery of a viable female weighed 3110 g, 6 pounds 14 ounces, Apgars 7 and 9 over an intact perineum. The was suctioned at delivery and placed on the mother's chest. The cord was clamped and cut. The placenta was delivered grossly intact and normal to inspection. There were no lacerations. Mother was doing well after delivery. History History History 8 Term 6 0 Miscarriages/Ectopic 2 Living Children 6 A&P PDMP PDMP Reviewed: Not Reviewed Coding Level of Care Code Acute Code for Chg Fwd
[2024-10-20] MEDS: ibuprofen 800 mg tablet PO ×2 (16:08→22:45)
[2024-10-20] MEDS: docusate sodium 100 mg Capsule PO (17:57)
[2024-10-21 03:29] LABS: Hematocrit 30.5 % (36-47); Mean Corpuscular HGB Conc 34.4 g/dL (30-55); Mean Corpuscular Volume 101.7 fl (85-98); Mean Platelet Volume 11.1 fL (7.4-10.4); Platelet Count 146 10^3/cmm (157-399); Red Cell Distribution Width 13.2 % (12.1-15.1); White Blood Count 9.57 10^3/uL (3.29-11.43)
[2024-10-21 04:00] VITALS: BP 93/54; PULSE 70; RESP 18; TEMP 36.6
[2024-10-21] MEDS: ibuprofen 800 mg tablet PO (09:00)
[2024-10-21] MEDS: PRENATAL VIT NO.130/IRON/FOLIC 1 EACH TABLET PO (09:00)
[2024-10-21] MEDS: docusate sodium 100 mg Capsule PO (09:00)
[2024-10-21 09:58] VITALS: BP 113/75; PULSE 75; RESP 16; TEMP 36.6
--- NOTE | 2024-10-21 12:07 | P.DS_ITS ---
Discharge Providers Date of Admission: 10/20/24 14:07 Date of Discharge: October 21, 2024 Attending Provider at Admission: Cookie Navarro MD Attending Provider at Discharge: Cookie Navarro MD Primary Care Provider: Derrell Lechuga MD Reason for Visit Reason for Visit: induction of labor Hospital Course Hospital Course This is a 38-year-old G8 now P7 who was admitted for induction at 39 weeks gestation. She had a normal spontaneous vaginal delivery of a viable female infant. Mother has done well . She is ambulating, tolerating a regular diet and has had average to light vaginal bleeding. She is comfortable with discharge home Physical Exam Narrative: Sitting up in bed eating lunch, heart regular rate and rhythm, lungs clear to auscultation bilaterally, abdomen is soft and nontender, fundus is firm, ex tremities have no calf tenderness and no edema Discharge Data Studies Completed and Pending Laboratory Results WBC 9.57 10^3/uL (3.29-11.43) 10/21/24 02:35 RBC 3.00 10^6/uL (3.85-5.65) L 10/21/24 02:35 Hgb 10.50 g/dL (11.27-16.99) L 10/21/24 02:35 Hct 30.5 % (36-47) L 10/21/24 02:35 MCV 101.7 fl (85-98) H 10/21/24 02:35 MCH 35.0 pg (27-33) H 10/21/24 02:35 MCHC 34.4 g/dL (30-55) 10/21/24 02:35 RDW 13.2 % (12.1-15.1) 10/21/24 02:35 Plt Count 146 10^3/cmm (157-399) L 10/21/24 02:35 MPV 11.1 fL (7.4-10.4) H 10/21/24 02:35 Neut % (Auto) 72.4 % 10/20/24 07:45 Lymph % (Auto) 16.6 % 10/20/24 07:45 [place] % (Auto) 8.0 % 10/20/24 07:45 Eos % (Auto) 1.7 % 10/20/24 07:45 Baso % (Auto) 0.2 % 10/20/24 07:45 Neut # (Auto) 6.71 10^3/uL (1.8-7.7) 10/20/24 07:45 Lymph # (Auto) 1.5 10^3/uL (0.8-4.8) 10/20/24 07:45 [place] # (Auto) 0.7 10^3/uL (0.2-0.9) 10/20/24 07:45 Eos # (Auto) 0.2 10^3/uL (0.0-0.8) 10/20/24 07:45 Baso # (Auto) 0.0 10^3/uL (0.0-0.1) 10/20/24 07:45 Nucleated RBC % (auto) 0 % 10/20/24 07:45 Nucleated RBCs # 0.0 /100WBC 10/20/24 07:45 Urine Opiates Screen Negative ng/mL (Negative) 10/20/24 07:43 Ur Barbiturates Screen Negative ng/mL (Negative) 10/20/24 07:43 Ur Phencyclidine Scrn Negative ng/mL (Negative) 10/20/24 07:43 Ur Amphetamines Screen Negative ng/mL (Negative) 10/20/24 07:43 U Benzodiazepines Scrn Negative ng/mL (Negative) 10/20/24 07:43 Urine Cocaine Screen Negative ng/mL (Negative) 10/20/24 07:43 U Marijuana (THC) Screen Negative ng/mL (Negative) 10/20/24 07:43 Blood Type O Positive 10/20/24 07:45 Rho(D) Type Rh positive 10/20/24 07:45 Antibody Screen Negative 10/20/24 07:45 Vitals Last Vital Signs Temp 97.9 F 10/21/24 09:58 Pulse 75 10/21/24 09:58 Resp 16 10/21/24 09:58 BP 113/75 10/21/24 09:58 O2 Del Method Room Air 10/20/24 07:00 Discharge Plan Discharge Patient Disposition: Home Condition: Stable Prescriptions: Continued 1 cap PO DAILY Discharge Orders: Discharge Order (Routine); Ordered 10/21/24 Ordered By: Cookie Navarro Referrals: Cookie Navarro MD [Physician] - 11/24/24 Discharge Diet: Usual diet Discharge Activity: Limit activity as instructed Patient Instructions: Depression (DC), Preeclampsia and Eclampsia After Delivery (GEN), Hemorrhage (DC), OB Discharge Report, OB Food/Drug Interaction Guide, Opioid Safety, OB Home Care, Abnormal Bleeding Activity Restrictions/Additional Instructions: Nothing per vagina for 6 weeks Discharge Attestations Time Spent in Discharge Care*: less than 30 min Quality Metrics Clinical Quality Measures [ No reported AMI, CVA or VTE this stay] Coding Level of Care Code Acute Code for Chg Fwmile
[2024-10-21 15:40] VITALS: BP 118/76; PULSE 78; RESP 16; TEMP 36.6; O2SAT 98
== END 2024-10-21 15:40 | disposition home or self-care (01) | DRG 807 ==
LOC: OPOB 14:07 → OBGYN 14:07
PROVIDERS: Admitting Provider Family Medicine; PCP Family Medicine; Visit Provider Family Medicine
DX: O80 Encounter for full-term uncomplicated delivery (principal); Z37.0 Single live birth; Z3A.39 39 weeks gestation of pregnancy
CPT/HCPCS: 36415; 59025; 59409; 80306; 85025; 85027; 86850; 86900; J2590; J7120; J9999